=== PATIENT | female | born 1995 | race African-American/Black ===

== ENCOUNTER 2024-07-21 13:55 | Emergency (ER) | payer BC, SELFPAY ==
--- NOTE | ~2024-07-21 | XR_ITS ---
EXAMINATION: XR CHEST CLINICAL INFORMATION: Chest pain with deep breathing. COMPARISON: None available. TECHNIQUE: 2 views of the chest were obtained. FINDINGS: Heart size is normal. The lungs are clear. No pleural effusion. No pneumothorax. No acute osseous abnormality. XR/XR chest 2V IMPRESSION: No acute cardiopulmonary disease. Electronically signed by: Edvin Lind DO 07/21/2024 03:02 PM EDT RP
--- NOTE | 2024-07-21 14:00 | ECG_ITS ---
Test Reason : chest pain Blood Pressure : / mmHG Vent. Rate : 080 BPM Atrial Rate : 080 BPM P-R Int : 158 ms QRS Dur : 064 ms QT Int : 352 ms P-R-T Axes : 015 016 012 degrees QTc Int : 405 ms Normal sinus rhythm with sinus arrhythmia Cannot rule out Anterior infarct , age undetermined Abnormal ECG No previous ECGs available Referred By: Generic ED Physician Electronically Signed By:ZHANG ESCOBAR
--- NOTE | 2024-07-21 14:18 | ED_ITS ---
HPI - Chest Pain General Chief Complaint: Chest Pain Stated Complaint: Chest pain after taking sumatriptan Time Seen by Provider: 07/21/24 18:42 Source: patient Mode of arrival: ambulatory Limitations: no limitations History of Present Illness ED Provider: NIKKI GOLD PA-C HPI narrative: 29 year old female with pmhx significant for migraines, on sumatriptan, presents to the ED for evaluation of constant chest pain since 1200 yesterday. Reports taking a sumatriptan at noon yesterday for a migraine. Shortly after began to have right sided chest pain radiating to her back, worse with deep breathing. Admits to tight sensation. Admits to episode of diaphoresis while shopping at [employer] today prompting her to come to the ED for evaluation. She reports that this has completely resolved. Reports to previously to took sumatriptan years ago. She restarted it last month and has taken it 3 times, tolerating it well with improvement in migraines. She did not take any avjy-nop-ibxshwe pain medications for her chest pain prior to arrival in ED. No recent travel or long car rides. Reports remote history of OCP use when she was a teenager. Denies fever, chills, headache, dizziness, shortness of breath, wheezing, dyspnea, calf pain/swelling. Related Data Allergies Allergy/AdvReac Type Severity Reaction Status Date / Time Iodinated Contrast Media Allergy Anaphylaxis Verified 07/21/24 14:22 [Contrast Dye] Review of Systems 2 Review of Systems: Constitutional: No fever, chills, fatigue, night sweats, weight changes ENT/Mouth: No ear pain, hearing loss, nasal congestion, sinus pain, rhinorrhea, sore throat Eyes: No eye pain, swelling, redness, vision changes, discharge Cardio: No palpitations, KELLOGG, orthopnea, peripheral edema, +chest pain Pulm: No SOB, cough, sputum, wheezing, dyspnea, hemoptysis GI: No nausea, vomiting, hematemesis, abdominal pain, diarrhea, constipation, hematochezia, melena : No irregular bleeding, dysuria, frequency, urgency, hesitancy, hematuria, flank pain, urinary flow changes, urinary incontinence or retention MSK: No back pain, neck pain, joint pain, myalgias Skin: No lesions, rashes Neuro: No weakness, numbness, paresthesias, LOC, dizziness, headache Psych: No anxiety/panic, depression, SI/HI, AH/VH All other systems reviewed and are negative. [facility] Past Medical History Attestation statement: The following information was validated with the patient. Source: old records reviewed and nursing notes reviewed Social History Social History Advance Directives: No Advance Directives Information Provided: Yes Physical Exam 2 Vital Signs: Vital Signs: Last Vital Signs Temp 96.8 F 07/21/24 18:47 Pulse 84 07/21/24 18:47 Resp 20 07/21/24 18:47 BP 141/88 H 07/21/24 18:47 Pulse Ox 98 07/21/24 18:47 O2 Del Method Room Air 07/21/24 18:47 BMI result Body Mass Index 50.5 hypertensive to 141/88, vitals otherwise wnl. General: Well appearing, in no acute distress. Skin: Warm, dry, intact. No rashes or lesions. Head: Normocephalic, atraumatic. EENT: Hearing is intact b/l. PERRLA. Moist mucous membranes.? Neck: Supple without LAD. FROM. Trachea midline.? Cardiac: Chest wall symmetric. RRR. No MRG. No JVD. Lungs: Normal respiratory effort without accessory muscle use. CTA bilaterally. No rales, rhonchi, or wheezes.? Abdomen: Soft, non-tender, non-distended. No rebound tenderness or guarding. Back: No midline spinous or paraspinal tenderness. No step off deformity. Ext: Upper and lower extremities atraumatic, without tenderness, deformity, swelling or erythema. Full ROM throughout. Neuro: AOx3. Normal speech. Strength 5/5 intact throughout. Ambulating with steady gait. Psych: Appropriate mood and affect. Responds appropriately to questions. Course Course Course Narrative: This is a Rapid Medical Examination (RME) performed by Anahi Gold PA-C in triage. Full HPI, ROS, assessment and treatment plan per primary provider in the Main ED. 29 yo female hx of migraines here for eval of right sided chest pain radiating to back after taking sumatriptan around 1200 yesterday. chest pain is constant and worsening. described as a deep, tight sensation, worse with deep breathing. reports episode of diaphoresis while shopping at [employer] today. had previously taken sumatriptan years ago, took it again 3 times over the last month for migraines and tolerated it well with improvement in migraines. no recent travel or long car rides. remote hx of OCP use. + well appearing. lungs clear however patient reports pain with deep breathing. no reproducible chest wall tenderness. Plan: labs, ekg, cxr Reevaluation(s) Reevaluation #1: 1847 -- CBC with slight leukocytosis to 11,200 without left shift. no concern for infectious process. no anemia. h&h stable. chemistry without acute electrolyte abnormality requiring intervention. no demetri. normal liver function. troponin undetectable x2. beta quant hcg undetectable. not . cxr without infiltrate or consolidation. EKG showing normal sinus rhythm with sinus arrhythmia, no acute ischemic changes or ST elevations. > discussed all work up results with patient. concern for costochondritis vs pleuritis. advised to trial NSAIDs. Patient has remained stable throughout ED visit today. Discussed worrisome signs and symptoms and when to return to the ED. All questions answered at this time. Patient is agreeable with disposition and stable for discharge. Medical Decision Making Medical Decision Making [facility] Narrative: This patient presents with chest pain, with symptoms suggestive of noncardiac chest pain.?Vital signs are stable. She is not hypoxic. Not tachycardic. Well appearing. History without high risk features (not substernal, no exertional component, not relieved with rest).? Minimal CAD risk factors (including age). Exam without evidence of volume overload. EKG without signs of active ischemia. HEART score: 0.? Given the timing of pain to ED presentation, plan to send delta troponin to evaluate for NSTEMI. Presentation not consistent with acute PE (PERC negative), pneumothorax, thoracic aortic dissection, cardiac effusion or tamponade. Plan: labs, troponin, EKG, CXR, reassessment Differential Diagnosis Differential Diagnoses: The differential diagnosis associated with the presentation includes as above. Admission/Observation Not indicated. Lab Data [facility] Lab Attestation statement: I reviewed the patient's lab results. as above. 07/21/24 14:48 07/21/24 14:48 Labs: Lab Results 07/21/24 07/21/24 Range/Units 14:48 18:02 WBC 11.2 H (4.8-10.8) X10*3/uL RBC 4.99 (4.20-5.50) X10*6/uL Hgb 13.2 (12.0-16.0) g/dl Hct 39.0 (37.0-47.0) % MCV 78.2 L (80.0-98.0) fL MCH 26.5 L (27.0-33.0) pg MCHC 33.8 (31.0-35.0) g/dl RDW 15.5 (11.0-16.0) % Plt Count 367 (160-400) X10*3/uL MPV 10.5 (9.4-12.3) fL Immature Gran % (Auto) 0.4 (0.0-0.4) % Neut % (Auto) 57.8 (45-73) % Lymph % (Auto) 33.8 (20-40) % [place] % (Auto) 6.0 (2-11) % Eos % (Auto) 1.2 (0-4) % Baso % (Auto) 0.8 (0-2) % Lymph # (Auto) 3.8 (1.2-4.9) X10*3/uL [place] # (Auto) 0.7 (0.1-1.2) X10*3/uL Eos # (Auto) 0.1 (0.0-0.4) X10*3/uL Baso # (Auto) 0.1 (0.0-0.2) X10*3/uL Abs Immat Gran (auto) 0.04 H (0.00-0.03) X10*3/uL Absolute Neuts (auto) 6.5 (2.0-8.3) x10*3/uL Absolute Nucleated RBC 0.000 (0.0-0.012) X10*3/uL Nucleated RBC % (auto) 0.0 (0.0-0.2) /100WBC PT 13.2 (11.1-13.3) SEC INR 1.1 (0.9-1.1) Sodium 140 (135-145) mmol/L Potassium 4.4 (3.3-5.1) mmol/L Chloride 107 (96-108) mmol/L Carbon Dioxide 24 (22-29) mmol/L Anion Gap 13 (12-20) BUN 10 (9-16) mg/dL Creatinine 0.77 (0.5-1.4) mg/dL Estim Creat Clear Calc 137.5 Estimated GFR > 60 Random Glucose 84 (60-115) mg/dL Calcium 9.6 (8.4-10.2) mg/dL Magnesium 1.9 (1.6-2.6) mg/dL Total Bilirubin 0.3 (0.0-1.0) mg/dL AST 15 (5-31) U/L ALT 15 (0-31) U/L Alkaline Phosphatase 68 (39-117) U/L Troponin I High Sens < 2.7 < 2.7 (<3.5-17.0) ng/L Total Protein 7.5 (6.5-8.0) g/dL Albumin 4.4 (3.5-5.0) g/dL Beta HCG, Quant < 2 mIU/mL Independent Interpretation I performed an independent interpretation of an: EKG and Plain X-Ray Interpretation: EKG showing normal sinus rhythm with sinus arrhythmia, no acute ischemic changes or ST elevations. Chest x-ray without focal consolidation or infiltrate, agree with radiologist's interpretation. Radiology Impression Discussion of test interpretation with radiology: I have reviewed the radiologist's reading. Radiologist Impression: EXAMINATION: XR CHEST CLINICAL INFORMATION: Chest pain with deep breathing. COMPARISON: None available. TECHNIQUE: 2 views of the chest were obtained. FINDINGS: Heart size is normal. The lungs are clear. No pleural effusion. No pneumothorax. No acute osseous abnormality. XR/XR chest 2V IMPRESSION: No acute cardiopulmonary disease. Electronically signed by: Edvin Lind DO 07/21/2024 03:02 PM EDT External Record Review External record reviewed: Inpatient record Prescription Management I considered prescription management with: Pain Medication (NSAIDS) Chronic Conditions Patient?s care impacted by: Other (migraines) Social Determinants Patient?s care significantly limited by Social Determinants of Health including: Other Social Determinant of Health Critical Care Time Critical Care Time Critical Care Time: No Discharge Plan Discharge Clinical Impression: Atypical chest pain Patient Disposition: Home, Self-Care Instructions: Noncardiac Chest Pain (ED), Chest Wall Pain (ED) Additional Instructions: You were evaluated in the Emergency Department today for chest pain. Your evaluation has shown no signs of medical conditions requiring emergent intervention at this time, however I recommend that you follow up with your primary care provider or your machine feed operator as soon as possible for further testing as an outpatient. If you do not have one, a referral has been provided. Please call them to make an appointment, they will not call you. I recommend discontinuing use of sumatriptan until you follow up with your prescriber. Return to the Emergency Department if you experience worsening or uncontrolled chest pain, shortness of breath, light headedness, feeling faint, nausea, vomiting, or any other concerning symptoms. Interventions: ED Discharge Assessment Last Done: 07/21/24 18:47 Discharge Date/Time: 07/21/24 18:48 Print Language: Lithuanian
[2024-07-21 14:19] VITALS: BP 142/85; PULSE 85; RESP 16; TEMP 37; O2SAT 100; BMI 50.5
[2024-07-21 14:59] LABS: MANUAL DIFF FLAG NO
[2024-07-21 15:06] LABS: Basophils Absolute Auto 0.1 X10*3/uL (0.0-0.2); Basophils Percent Auto 0.8 % (0-2); Eosinophils Absolute Auto 0.1 X10*3/uL (0.0-0.4); Eosinophils Percent Auto 1.2 % (0-4); Hemoglobin 13.2 g/dl (12.0-16.0); Imm Gran Abs Auto 0.04 X10*3/uL (0.00-0.03); Imm Gran Pct Auto 0.4 % (0.0-0.4); Lymphocytes Absolute Auto 3.8 X10*3/uL (1.2-4.9); Lymphocytes Percent Auto 33.8 % (20-40); Mean Corpuscular HGB Conc 33.8 g/dl (31.0-35.0); Mean Corpuscular Hemoglobin 26.5 pg (27.0-33.0); Mean Corpuscular Volume 78.2 fL (80.0-98.0); Mean Platelet Volume 10.5 fL (9.4-12.3); Monocytes Absolute Auto 0.7 X10*3/uL (0.1-1.2); Neutrophils Absolute Auto 6.5 x10*3/uL (2.0-8.3); Neutrophils Percent Auto 57.8 % (45-73); Platelet Count 367 X10*3/uL (160-400); Red Blood Count 4.99 X10*6/uL (4.20-5.50); Red Cell Distribution Width 15.5 % (11.0-16.0); White Blood Count 11.2 X10*3/uL (4.8-10.8)
[2024-07-21 15:11] LABS: INTERNATIONAL NORM RATIO 1.1 (0.9-1.1); Prothrombin Time 13.2 SEC (11.1-13.3)
[2024-07-21 15:23] LABS: Alanine Aminotransferase 15 U/L (0-31); Albumin Level 4.4 g/dL (3.5-5.0); Alkaline Phosphatase 68 U/L (39-117); Anion Gap 13 (12-20); Aspartate Amino Transferase 15 U/L (5-31); Bilirubin Total 0.3 mg/dL (0.0-1.0); Blood Urea Nitrogen 10 mg/dL (9-16); Calcium 9.6 mg/dL (8.4-10.2); Carbon Dioxide 24 mmol/L (22-29); Chloride 107 mmol/L (96-108); Creatinine Clr Calc Pharmacy 137.5; Estimated Glomerular Filt Rate > 60; Glucose Random 84 mg/dL (60-115); Magnesium 1.9 mg/dL (1.6-2.6); Potassium 4.4 mmol/L (3.3-5.1); Sodium 140 mmol/L (135-145); Total Protein 7.5 g/dL (6.5-8.0)
[2024-07-21 15:31] LABS: HCG Quantitative < 2 mIU/mL; Troponin-I High Sensitivity < 2.7 ng/L (<3.5-17.0)
[2024-07-21 18:34] LABS: Troponin-I High Sensitivity < 2.7 ng/L (<3.5-17.0)
[2024-07-21 18:39] VITALS: BP 141/88; PULSE 84; RESP 20; TEMP 36; O2SAT 98
[2024-07-21 18:47] VITALS: BP 141/88; PULSE 84; RESP 20; TEMP 36; O2SAT 98
== END 2024-07-21 18:48 | disposition home or self-care (01) ==
PROVIDERS: Physician Assistant Medical; Emergency Provider Emergency Medicine Emergency Medical Services
DX: R07.89 Other chest pain (principal)
CPT/HCPCS: 36415; 71046; 80053; 83735; 84484; 84702; 85025; 85610; 93005; 99283

== ENCOUNTER 2024-12-17 00:48 | Inpatient (IN) | payer BC, SELFPAY ==
[2024-12-17] VITALS (10 sets, daily range): BP systolic 108–143; BP diastolic 58–84; PULSE 99–136; RESP 16–27; TEMP 36.4–37.7; O2SAT 97–100; BMI 48.8
--- NOTE | ~2024-12-17 | CT_ITS ---
CLINICAL HISTORY: non focal abd pain with leukocytosis CT abdomen and pelvis without contrast Comparison: None Findings: 1.1 cm semi solid left lower lobe pulmonary nodule on image number 13 of series 5. The visualized portion of the right lung base appears clear. The gallbladder and solid organs are within normal limits. No renal stones. No hydronephrosis or hydroureter. No bowel obstruction. There is colonic diverticulosis with severe pericolonic fat stranding of the mid sigmoid colon, consistent with acute diverticulitis. There is associated bowel wall thickening in this region. A small focus of gas is identified along the superior aspect of the mid sigmoid colon , adjacent to a diverticulum on coronal image number 39 of series 7. Pelvic contents unremarkable. No bladder wall thickening. Minimal free fluid identified within the pelvis. Normal appendix. The bones are intact. IMPRESSION: 1. Colonic diverticulosis with acute diverticulitis at the mid sigmoid colon. There is extensive pericolonic fat stranding at this site. No pericolonic abscess demonstrated. A small focus of gas is identified along the superior aspect of the mid sigmoid colon adjacent to a diverticulum which may represent gas within the diverticulum versus minimal extraluminal gas related to a contained perforation. This document has been electronically signed by: Eulalio Cordero MD on 12/17/2024 04:24:01
--- NOTE | ~2024-12-17 | XR_ITS ---
CLINICAL HISTORY: Fecal impaction 1 view abdomen Comparison: None Findings: No pneumoperitoneum or pneumatosis. No dilated loops of bowel or evidence for bowel obstruction. No definite gas over the expected location of the rectum. No significant colonic or rectal stool burden visualized. No acute fractures. IMPRESSION: 1. Nonobstructed bowel-gas pattern. No significant colonic or rectal stool burden visualized. This document has been electronically signed by: Eulalio Cordero MD on 12/17/2024 01:54:20
--- OUTSIDE RECORDS SUMMARY | 2024-12-17 01:11 | XMS_ITS | Encounter Summary ---
Author Organization [facility] Address [address] [place] [address] Phone Care Team Providers Care It Disaster Recovery Manager Name Role Phone Unavailable Primary Care Provider Unavailabl e Encounter Details Date Type Department Care Team (Late st Contact Info) Description 07/10/2014 6:00 PM EDT Hospital Encounter Child Health [facility] [address] [place] [address] Humaira Garcia MD [address] [place] [id number] Social History Tobacco Use Types Packs/Day Years Used Date Smoking Tobacco: Never Assessed Comments Unknown Sex and Gender Information Value Date Recorded Sex Assigned at Not on file Legal Sex Female 6:38 PM EDT Gender Identity Not on file Sexual Orientation Not on file documented as of this encounter Plan of Treatment Not on file documented as of this encounter Visit Diagnoses Not on filedocumented in this encounter
--- OUTSIDE RECORDS SUMMARY | 2024-12-17 01:11 | XMS_ITS | Clinical Summary ---
Author Organization [facility] Address [address] [place] [address] Phone Care Team Providers Care [place] Worker Name Role Phone Unavailable Primary Care Provider Unavailabl e Allergies Active Allergy Reactions Criticality Noted Date Comments Other Anaphylaxis High 2018 IV contrast media Medications ciprofloxacin 500 MG tablet 05/14/2018 Activ e predniSONE 10 MG tablet 05/12/2018 Active medroxyPROGESTER one (DEPO-PROVERA) 400 MG/ML suspension Inject 400 mg/mL into the muscle. 05/26/2016 Active Active Problems Problem Noted Date Diagnosed Date Henoch-Schonlein purpura 05/25/2018 RB (rectal bleeding) 10/08/2016 Foot neuralgia, right 07/28/2016 Neck sprain and strain 06/18/2015 Excessive or frequent menstruation 09/09/2011 Constipation 07/01/2010 Immunizations Immunization Administration Dates Next Due DTaP 06/30/2000, 8,1996, 996,1996 HPV, Quadrivalent 05/24/2008,01/03/2008,10/26/20 07 Hep A 06/07/2017 Hep B 05/26/2016, 5,02/13/1997, 996,1996 HiB 08/15/1997, 7,1996, 996 IPV 06/30/2000, 8,1996, 996 Influenza 09/09/2011 MMR 07/20/2001,08/15/1997 Meningococcal Conj (Menactra) MCV4P 05/26/2016 PPD Test 07/20/2001 Td 05/09/2015 Tdap 10/26/2007 Family History Relation Name Status Comments Other : Parents gisselle al status: Single * Family history of anemia (Mother) * Family history of cancer (Father) * Family history of high blood pressure (Paternal Grandmother) * Family history of high blood pressure (Paternal Grandfather) * Family history of diabetes mellitus (Paternal Grandfather) * Family history of high cholesterol (Paternal Grandfather) Social History Tobacco Use Types Packs/Day Years Used Date Smoking Tobacco: Never Assessed Comments Unknown Sex and Gender Information Value Date Recorded Sex Assigned at Not on file Legal Sex Female 6:38 PM EDT Gender Identity Not on file Sexual Orientation Not on file Last Filed Vital Signs Vital Sign Reading Time Taken Comments Blood Pressure 120/78 2018 11:05 AM EDT Pulse 92 2018 11:05 AM EDT Temperature 36.8 ??C (98.2 ??F) 2018 11:05 AM E DT Respiratory Rate - - Oxygen Saturation 100% 2018 11:05 AM EDT Inhaled Oxygen Concentration - - Weight 97.5 kg (215 lb) 2018 11:05 AM EDT Height 159.4 cm (5' 2.75 ) 06/07/2017 12:31 PM E DT Body Mass Index 38.39 06/07/2017 12:31 PM EDT Plan of Treatment Health Maintenance Due Date Last Done Comments Consider Men B Vaccine (1 of 2 - Bexsero 2-dose series) 2012 Varicella Vaccines (1 of 2 - 13+ 2-dose series) 02/08/2017 Influenza Vaccines (#1) 2024 09/01/20 21, 07/28/2019, 08/03/2018, Additional history exists COVID-19 Vaccine ( season) 2024 11/19/2021, 12/13/2020, 11/14/2020 DTaP,Tdap,and Td Vaccines (9 - Td or Tdap) 11/17/2026 11/17/2016, 05/09/2015, 10/26/2007, Additional history exists HIB Vaccines Completed 08/15/1997, 11/09, 1996, Additional history exists IPV Vaccines Completed 06/30/2000, 11/08, 1996, Additional history exists Meningococcal Vaccine Aged Out 05/26/2016 No keith chantel eligible based on patient's age to complete this topic HPV Vaccines Completed 01/11/2017, 05/09, 05/24/2008, Additional history exists Hepatitis B Vaccines Completed 01/11/2017, 05/26/2016, 05/20/2015, Additional history exists MMR Vaccines Completed 01/11/2017, 07/09, 08/15/1997, Additional history exists Hepatitis A Vaccines Aged Out 06/07/2017 No long er eligible based on patient's age to complete this topic Men B Vaccine Aged Out No longer elig ible based on patient's age to complete this topic Pneumococcal Vaccine Aged Out No long er eligible based on patient's age to complete this topic Insurance O
--- OUTSIDE RECORDS SUMMARY | 2024-12-17 01:11 | XMS_ITS | Encounter Summary ---
Author Organization [facility] Address [address] [place] [address] Care Team Providers Care Communications Specialist Name Role Phone Myriam Carballo MD Primary Care Provider [phone] Encounter Details Date Type Department Care Team (Late st Contact Info) Description 06/03/2022 External Result Entry [facility] [address] [place] [address] Slate Handler: Lizeth Schmidt, RN [place], [place] Social History Tobacco Use Types Packs/Day Years Used Date Smoking Tobacco: Never Smokeless Tobacco: Never Comments:: Alcohol Use Standard Drinks/Week Comments Yes 0 (1 standard drink = 0.6 oz pur e alcohol) social Comments No Sex and Gender Information Value Date Recorded Sex Assigned at Female 04/27/2023 2:21 PM EDT Legal Sex Female 12:58 PM EDT Gender Identity Female 04/27/2023 2:21 PM EDT Sexual Orientation Lesbian or Martin 04/27/2023 2: 21 PM EDT documented as of this encounter Plan of Treatment Upcoming Encounters Date Type Department Care Team (Late st Contact Info) Description 02/09/2025 11:00 AM EDT Telehealth [facility] 5th Floor [address] [place] [address] documented as of this encounter Procedures * Due to [place] state law, this organization might not be sharing negative HIV tests. Procedure Name Priority Date/Time Associated Diagnosis Comments HEP B CORE TOTAL ANTIBODY, OUTSIDE LAB Routine 05/28/2022 HEPATITIS B SURFACE ANTIGEN W/CONFIRMATION, OUTSIDE LAB Routine 05/28/2022 MUMPS ANTIBODY IGG, OUTSIDE LAB Routine 04/15/2022 MEASLES ANTIBODY (IGG), OUTSIDE LAB Routine 04/15/2022 HEP B SURFACE ANTIBODY, OUTSIDE LAB Routine 04/15/2022 VARICELLA ZOSTER ANTIBODY, IGG, OUTSIDE LAB Routine 04/15/2022 QUANTIFERON, OUTSIDE LAB Routine 04/15/2022 RUBELLA ANTIBODY, IGG, OUTSIDE LAB Routine 04/15/2022 AMB EXTERNAL XR CHEST, OUTSIDE RESULT Routine 06/05/2015 12:26 PM EDT AMB EXTERNAL PPD, OUTSIDE RESULT Routine 05/08/2015 12:25 PM EDT documented in this encounter Results * Due to [place] state law, this organization might not be sharing negative HIV tests. * Hep B Core Total Antibody, Outside Lab (05/28/2022) Hep B Core Total AB neg Blood 05/28/2022 us Unknown Provider LAB BLOOD ORDERABLES Final R esult * Hepatitis B Surface Antigen w/Confirmation, Outside Lab (05/28/2022) Hepatitis B Surface Antigen neg Blood Structure of peripheral vein / Unknown 05/28/2022 us Unknown Provider LAB BLOOD ORDERABLES Final R esult * Varicella Zoster Antibody, IGG, Outside Lab (04/15/2022) VZV AB, IgG pos Blood Structure of peripheral vein / Unknown 04/15/2022 us Unknown Provider LAB BLOOD ORDERABLES Final R esult * Hep B Surface Antibody, Outside Lab (04/15/2022) Hep B Surface Antibody neg Blood 04/15/2022 us Unknown Provider LAB BLOOD ORDERABLES Final R esult * Rubella Antibody, IgG, Outside Lab (04/15/2022) Rubella Antibody, IgG pos Blood Structure of peripheral vein / Unknown 04/15/2022 us Unknown Provider LAB BLOOD ORDERABLES Final R esult * Mumps Antibody IgG, Outside Lab (04/15/2022) Mumps Antibody IgG pos Blood 04/15/2022 us Unknown Provider LAB BLOOD ORDERABLES Final R esult * Measles Antibody (IGG), Outside Lab (04/15/2022) Measles Antibody (IgG) pos Blood 04/15/2022 us Unknown Provider LAB BLOOD ORDERABLES Final R esult * Quantiferon, Outside Lab (04/15/2022) Quantiferon neg Blood Structure of peripheral vein / Unknown 04/15/2022 us Unknown Provider LAB BLOOD ORDERABLES Final R esult * XR Chest, Outside Result (06/05/2015 12:26 PM EDT) Anatomical Region Laterality Modality Other us Unknown Provider AMB EXTERNAL RESULT PROCEDUR ES Final Result * External PPD, Outside Result (05/08/2015 12:25 PM EDT) PPD, Outside Result Positive us Unknown Provider MD MENDOZA EXTERNAL RESULT PROCEDUR ES Final Result documented in this encounter Visit Diagnoses Not on filedocumented in this encounter Care Teams Communications Specialist Relationship Specialty Start Date End Date Myriam Carballo MD [address] [place] [phone] PCP - General Family Medicine 01/27/23 documented as of this encounter
--- OUTSIDE RECORDS SUMMARY | 2024-12-17 01:11 | XMS_ITS | Encounter Summary ---
Author Organization [facility] Address [address] [place] [address] Phone Care Team Providers Care Airplane First Officer Name Role Phone Unavailable Primary Care Provider Unavailabl e Encounter Details Date Type Department Care Team (Late st Contact Info) Description 06/14/2015 2:00 PM EDT Hospital Encounter Child Health [facility] [address] [place] [address] Humaira Garcia MD [address] [place] [phone] Social History Tobacco Use Types Packs/Day Years [...]
--- OUTSIDE RECORDS SUMMARY | 2024-12-17 01:11 | XMS_ITS | Clinical Summary ---
Author Organization [facility] Address [address] [place] [address] Care Team Providers Care Help Desk Support Name Role Phone Micheal Nunez Primary Care Provider [phone] Immunizations Name Administration Dates Next Due COVID-19, mRNA (Moderna Pre Fall 2022) Monovalent, 100 mcg/0.5 ml or 50 mcg/0.25 ml dose 11/19/2021,12/13/2020,11/14/2020 HPV - 05/30/2014 HPV4 (Gardasil 4) 01/11/2017, 8,01/03/2008,10/26 Hep A - 06/07/2017 Hep B (adult) 05/08/2022 Hep B (pedi) 1996 Hep B - 01/11/2017, 6,05/20/2015,02/13,1996,1996 IPV 06/30/2000, 8,1996,07/26 Influenza (SEASONAL) - 09/09/2011 Influenza,injectable,MDCK, P rsrv Fr,Quad 09/11/2022,08/02/2017 Influenza,injectable,quad,Prsrv Fr 09/01,07/28/2019,08/03/2018,08/05 MMR 01/11/2017, 1,08/15/1997,05/29 Meningococcal ACWY (Menactra) 05/26/2016 PCV-20 04/15/2022 Td - 05/09/2015 Social History Tobacco Use Types Packs/Day Years Used Date Smoking Tobacco: Never Assessed Intimate Partner Violence Answer Date R ecorded Fear of Current or Ex-Partner Not on file Emotionally Abused Not on file 07/01/2023 Physically Abused Not on file 07/01/2023 Sexually Abused Not on file 07/01/2023 Feel Safe at Home Not on file 07/01/2023 Comments Unknown Sex and Gender Information Value Date Recorded Sex Assigned at Not on file Legal Sex Female 10:22 AM EDT Gender Identity Not on file Sexual Orientation Not on file Plan of Treatment Health Maintenance Due Date Last Done Comments Hepatitis C Screening 1996 Pap Smear 2012 DTaP/Tdap/Td (1 - Tdap) 05/10/2015 05/09/2015 COVID-19 Vaccine ( season) 2024 11/19/2021, 12/13/2020, 11/14/2020 Influenza (#1) 2024 09/11/2022, 08/09, 07/28/2019, Additional history exists Zoster (Shingrix) (1 of 2) 2046 Meningococcal ACWY Aged Out 05/26/2016 No longer eligible based on patient's age to complete this topic HPV Vaccine Completed 01/11/2017, 05/09, 05/24/2008, Additional history exists Hep A Aged Out 06/07/2017 No longer eligi ble based on patient's age to complete this topic Pneumococcal Aged Out 04/15/2022 No longer eligi ble based on patient's age to complete this topic Hep B Completed 05/08/2022, 04/2017, 05/26/2016, Additional history exists Hib Aged Out No longer eligi ble based on patient's age to complete this topic Insurance * Guarantor: GEMA ANGEL Account Type Relation to Patient Date of Phone Billing Address Personal/Family [address] [place] [address] [employer] FEE FOR SERVICE HMO * Guarantor: [facility] Account Type Relation to Patient Date of Phone Billing Address [employer] [phone] (Home) ACCOUNTS PAYABLE [address] [place] [id number] Care Teams Help Desk Support Relationship Specialty Start Date End Date Micheal Nunez [address] [address] PCP - General Internal Medicine 11/13/19
--- OUTSIDE RECORDS SUMMARY | 2024-12-17 01:11 | XMS_ITS | Encounter Summary ---
Author Organization [facility] Address [address] [place] [address] Care Team Providers Care Manual Writer Name Role Phone Myriam Carballo MD Primary Care Provider [phone] Encounter Details Date Type Department Care Team (Late st Contact Info) Description 07/19/2024 [employer] Message [facility] Financial Clearance Department [address] [place] [address] Mychart, Generic Provider [facility] [place] [phone] Medication Social History Tobacco Use Types Packs/Day Years Used Date Smoking Tobacco: Never Smokeless Tobacco: Never Comments:: Alcohol Use Standard Drinks/Week Comments Yes 0 (1 standard drink = 0.6 oz pur e alcohol) social [facility] Utilities Answer Date Recorded In the past 12 months has e electric, gas, oil, or water company threatened to shut off services in your home? No 04/17/2024 Hunger Vital Sign Answer Date Recorded Within the past 12 months, y ou worried that your food would run out before you got the money to buy more. Never true 04/17/20 24 Within the past 12 months, t he food you bought just didn't last and you didn't have money to get more. Never true 04/17/2024 Transportation Answer Date Recorded In the past 12 months, has l ack of reliable transportation kept you from medical appointments, meetings, work or from getting things needed for daily living? No 04/17/2024 Housing Answer Date Recorded Housing Risk Low 1 04/17/2024 Housing Risk Medium 1 04/17/2024 Housing Risk High Not on file 04/17/2024 What is your living situation today? LSSTEADY 04/17/2024 Comments No Sex and Gender Information Value [...] Info) Description 02/09/2025 11:00 AM EDT Telehealth [facility] 5th Floor [address] [place] [address] documented as of this encounter Visit Diagnoses Not on filedocumented in this encounter Care Teams Manual Writer Relationship Specialty Start Date End Date Myriam Carballo MD [address] [place] [address] PCP - General Family Medicine 01/27/23 documented as of this encounter
--- OUTSIDE RECORDS SUMMARY | 2024-12-17 01:11 | XMS_ITS | Encounter Summary ---
Author Organization [facility] Address [address] [place] [address] Phone Care Team Providers Care Director Of Corporate Sales Name Role Phone Humaira Garcia MD Primary Care Provider Encounter Details Date Type Department Care Team (Late st Contact Info) Description 03/27/2018 Conversion Encounter [facility] [address] [place] [address] Social History Tobacco Use Types Packs/Day Years [...] on filedocumented in this encounter Care Teams Director Of Corporate Sales Relationship Specialty Start Date End Date Humaira Garcia MD [address] [place] [address] PCP - General 03/16/18 06/11/19 documented as of this encounter
--- OUTSIDE RECORDS SUMMARY | 2024-12-17 01:11 | XMS_ITS | Referral Summary ---
Author Organization [facility] Address [address] [place] [address] Care Team Providers Care Muskrat Trapper Name Role Phone Myriam Carballo MD Primary Care Provider [phone] Encounters Date Type Department Care Team Description 12/11/2024 [employer] Message [address] [phone] Clothing Presser: Myriam Cox MD Three quick questions 10/11/[address] [phone] Clothing Presser: Lizeth Schmidt RN 10/11/2024 [employer] Message [address] [phone] Clothing Presser: Myriam Cox MD Norovirus from Last 3 Months Allergies Active Allergy Reactions Criticality Noted Date Comments Iodinated Contrast Media Anaphylaxis High 11/24/2017 No Known Drug Allergies Unknown Sulfites Dyspnea High 12/15/2019 Medications * This document contains information received from the source organization and may not represent a complete record from that organization. EPINEPHrine (EPIPEN) 0.3 mg/0.3 mL injection syringe Inject 1 dose into the muscle once as needed; seek medical attention as soon as possible after injection. 2 each 02/08/2023 4:23 PM EDT 3 Active colestipoL (COLESTID) 1 gram tablet Take 2 tablets at bedtime 60 tablet 3 04/02/2023 4:40 PM EDT 3 Active naltrexone-bupro pion 8-90 mg tablet extended release Take 1 tablet by mouth 2 times a day. Start 1 tablet daily for the first 7 days and then increase to 1 tablet twice daily if tolerating 60 tablet 4 Active SUMAtriptan (IMITREX) 25 mg tablet Take 1 tablet (25 mg total) by mouth daily as needed for migraine. May repeat dose once in 2 hours if no relief. Do not exceed 2 doses in 24 hours. 30 tablet 3 4 Active dicyclomine (BENTYL) 20 mg tablet Take 1-2 tablets (20-40 mg total) by mouth 3 times a day as needed for abdominal pain and cramping.. 90 tablet 3 4 Active omeprazole (PriLOSEC) 20 mg capsule Take 1 capsule (20 mg total) by mouth once a day. 30 capsule 1 4 Active albuterol (Ventolin HFA) 90 mcg inhaler Inhale 2 puffs (180 mcg total) by mouth every 6 hours as needed for wheezing 18 g 2 4 Active levothyroxine (SYNTHROID, LEVOTHROID) 25 mcg tablet Take 1 tablet (25 mcg total) by mouth daily. 30 tablet 3 4 Active budesonide-formo teroL (Breyna) 80-4.5 mcg inhalerIndicatio ns:Mild intermittent asthma with exacerbation Inhale 2 puffs by mouth 2 times a day. Rinse mouth with water after use. Do not swallow. 10.3 g 3 4 Active famotidine (PEPCID) 20 mg tablet Take 1 tablet (20 mg total) by mouth 2 (two) times a day. 20 tablet 04/19/2020 4:20 PM EDT 0 020 Discontin ued(Exter nal source cancellat ion) QUEtiapine (SEROquel) 25 mg tablet Take 1 tablet (25 mg total) by mouth nightly. 30 tablet 11/26/2020 1:12 PM EST 01/ 021 Discontin ued(Other (enter Order note)) Active Problems Problem Noted Date Diagnosed Date Inflammatory bowel disease 01/25/2023 Burning sensation 11/10/2016 RB (rectal bleeding) 10/08/2016 Constipation 10/08/2016 Foot neuralgia, right 07/28/2016 Latent tuberculosis 02/07/2013 Overview (07/30/2017): TST 20MM 01/23/2013 Immunizations Name Administration Dates Next Due Diphtheria, Tetanus Toxoids and Acellular Pertussis Vaccine 06/30/2000,11/21/1997,1996,09/27,1996 HPV, Unspecified Formulation 05/30/2014 Haemophilus Influenzae Type B Vaccine, Conjugate Unspecified Formulation 08/15/1997,08/15/1997,1996,11/29,1996,1996,1996 ,1996 Hep A, Unspecified 06/07/2017 Hep B, Unspecified 08/25/2023,,01/11/2017,05/26,05/20/2015,02/13/1997,1996 ,1996 Hepatitis B Vaccine, Pediatr ic or Pediatric/Adolescent Dosage 1996 Hepatitis B Vaccine, Unspeci fied Formulation 05/08/2022 Hepatitis B adult (ENGERIX-B ADULT) vaccine 1 mL IM 05/08/2022,05/26/2016,02/13/1997 Hepatitis B adult (ENGERIX-B/RECOMBIVAX HB ADULT) vaccine 1 mL IM 01/11/2017,05/20/2015,1996 Human Papilloma Virus Vaccin e, Quadrivalent 01/11/2017,05/24/2008,01/03/2008,10/26 Influenza, Injectable, Madin Monika Canine Kidney, Preservative Free, Quadrivalent 09/11/2022,08/02/2017 Influenza, Injectable, Quadr ivalent, Contains Preservative 09/01/2021 Influenza, Injectable, Quadr ivalent, Preservative Free 08/30/2024,09/11/2022,09/01/2021,07/28,08/03/2018,08/05/2016 Influenza, Unspecified 08/26/2023,2021,09/01/2021,09/09 Measles, Mumps, and Rubella Vaccine /04/2017,07/20/2001,08/15/1997,05/29 Meningococcal Polysaccharide (Groups A, C, Y and W-135) Diphtheria Toxoid Conjugate Vaccine (MCV4P) 05/26/2016 Pneumococcal conjugate PCV20,polysaccharide [id number] conjugate, adjuvant, PF (Prevnar 20) 04/15/2022 Poliovirus Vaccine, Inactivated 06/30/20 00,11/21/1997,1996,07/26 Tetanus Toxoid, Reduced Diph theria Toxoid, and Acellular Pertussis Vaccine, Adsorbed 11/17/2016,10/26/2007 Tetanus and Diphtheria Toxoi ds, Adsorbed, Preservative Free (2 Lf of Tetanus Toxoid and 2 Lf of Diphtheria Toxoid) 05/09/2015 Tuberculin Skin Test; Juan Ramon ed Protein Derivative Solution, Intradermal 07/20/2001 Social History Tobacco Use Types Packs/Day Years Used Date Smoking Tobacco: Never Smokeless Tobacco: Never Comments:: Alcohol Use Standard Drinks/Week Comments Yes 0 (1 standard drink = 0.6 oz pur e alcohol) social [facility] Utilities Answer Date Recorded In the past 12 months has th e electric, gas, oil, or water [employer] threatened to shut off services in your [...] or Martin 04/27/2023 2: 21 PM EDT Last Filed Vital Signs Vital Sign Reading Time Taken Comments Blood Pressure 137/80 06/05/2024 12:53 PM EDT Pulse 74 06/05/2024 12:53 PM EDT Temperature 36.7 ??C (98.1 ??F) 06/02/2023 10:06 AM E DT Respiratory Rate 18 02/17/2022 3:16 PM EDT Oxygen Saturation 99% 06/05/2024 12:53 PM EDT Inhaled Oxygen Concentration - - Weight 124.7 kg (275 lb) 06/05/2024 12:53 PM EDT Height 157.5 cm (5' 2 ) 06/05/2024 12:53 PM EDT Body Mass Index 50.3 06/05/2024 12:53 PM EDT Plan of Treatment Upcoming Encounters Date Type Department Care Team (Late st Contact Info) Description 02/09/2025 11:00 AM EDT Telehealth [facility] [address]th [address] [place], [place] [phone] Procedures * Due to [place] state law, this organization might not be sharing negative HIV tests. Procedure Name Priority Date/Time Associated Diagnosis Comments HEPATITIS C ANTIBODY W/REFLEX TO HCV RNA, QUANTITATIVE PCR Routine 06/02/2023 11:13 AM EDT Routine screening for STI (sexually transmitted infection) from Last 3 Months or Most Recently Relevant to Health Maintenance Results * Due to [place] state law, this organization might not be sharing negative HIV tests. * Hepatitis C Antibody w/Reflex to HCV RNA, Quantitative PCR (06/02/2023 11:13 AM EDT) Hepatitis C Antibody NON-REACT RCISTINE NON-REACT CRISTINE 06/02/2023 8:55 PM EDT [employer] Comment: HCV antibody was non-reactive. There is no laboratory evidence of HCV infection. In most cases, no further action is required. However, if recent HCV exposure is suspected, a test for HCV RNA (test code 58224) is suggested. For additional information please refer to http://education.[employer]/faq/CRR76u4 (This link is being provided for informational/ educational purposes only.) Blood Structure of peripheral vein / Unknown Venipuncture / Unknown 06/02/2023 11:13 AM EDT 06/02/2023 11:25 AM EDT Narrative [facility] - 06/02/2023 8:55 PM EDT [facility] Received Date:[id number] us Myriam Carballo MD LAB BLOOD ORDERABLES Final R esult [facility] [address], [place] [address], [place] [phone] [employer] [facility] [address], [place] [address], [place] [phone] from Last 3 Months or Most Recently Relevant to Health Maintenance Advance Directives Documents on File Type Date Recorded 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
--- OUTSIDE RECORDS SUMMARY | 2024-12-17 01:11 | XMS_ITS | Encounter Summary ---
Author Organization [facility] Address [address] [place] [address] Care Team Providers Care Hand Chain Maker Name Role Phone Myriam Carballo MD Primary Care Provider [phone] Encounter Details Date Type Department Care Team (Late st Contact Info) Description 12/11/2024 myChart Message [facility] [address] [place] [phone] Implementation Director: Myriam Cox MD [address] [place] [address] Three quick questions Social History Tobacco Use Types Packs/Day Years Used Date Smoking Tobacco: Never Smokeless Tobacco: Never Comments:: Alcohol Use Standard Drinks/Week Comments Yes 0 (1 standard drink = 0.6 oz pur e alcohol) social [facility] Utilities Answer Date Recorded In the past 12 months has th e [employer], gas, oil, or water [employer] threatened to shut off services in your [...] Info) Description 02/09/2025 11:00 AM EDT Telehealth [facility] 5th Floor [address] [place] [address] documented as of this encounter Visit Diagnoses Not on filedocumented in this encounter Care Teams Hand Chain Maker Relationship Specialty Start Date End Date Myriam Carballo MD [address] [place] [phone] PCP - General Family Medicine 01/27/23 documented as of this encounter
--- OUTSIDE RECORDS SUMMARY | 2024-12-17 01:11 | XMS_ITS | Encounter Summary ---
Author Organization [facility] Address [address] [place] [address] Phone Care Team Providers Care Impregnating Helper Name Role Phone Humaira Garcia MD Primary Care Provider [phone] Encounter Details Date Type Department Care Team (Late st Contact Info) Description 09/28/2016 [facility] [address] [place] [address] Humaira Garcia MD [address] [place] [phone] Social History Tobacco Use Types Packs/Day Years Used Date Smoking Tobacco: Never Assessed Comments Unknown Sex and Gender Information Value Date Recorded Sex Assigned at Not on file Legal Sex Female 6:38 PM EDT Gender Identity Not on file Sexual Orientation Not on file documented as of this encounter H&P Notes * Humaira Garcia MD - 09/28/2016 12:00 AM EST Hospital History & Physical: low back pain and diarrhea Imported By: Collette Adams 10/02/2016 8:29:23 AM External Attachment: Type: Image Comment: External Document documented in this encounter Plan of Treatment Not on file documented as of this encounter Visit Diagnoses Not on filedocumented in this encounter Care Teams Impregnating Helper Relationship Specialty Start Date End Date Humaira Garcia MD [address] [place] [phone] PCP - General 03/16/18 06/11/19 documented as of this encounter
--- OUTSIDE RECORDS SUMMARY | 2024-12-17 01:11 | XMS_ITS | Clinical Summary ---
Author Organization [facility] Address [address] [place] [address] Care Team Providers Care Shop Manager Name Role Phone Myriam Carballo MD Primary Care Provider Allergies Active Allergy Reactions Criticality Noted Date [...] nightly. 30 tablet 11/26/2020 1:12 PM EST 1 021 Discontin ued(Other (enter Order note)) Active Problems Problem Noted Date Diagnosed Date Inflammatory bowel disease 01/25/2023 Burning sensation 11/10/2016 RB (rectal bleeding) 10/08/2016 Constipation 10/08/2016 Foot neuralgia, right 07/28/2016 Latent tuberculosis 02/07/2013 Overview (07/30/2017): TST 20MM 01/23/2013 Encounters Date Type Department Care Team Description 12/11/2024 myChart Message [address] [address] Parachute Inspector: Myriam Cox MD Three quick questions 10/11/2024 Telephone [facility] [address] [address] Parachute Inspector: Lizeth Schmidt RN 10/11/2024 [employer] Message [address] [address] Parachute Inspector: Myriam Cox MD Norovirus from Last 3 Months Immunizations Name Administration Dates Next Due Diphtheria, [...] Unspecified 08/26/2023,2021,09/01/2021,09/09 Measles, Mumps, and Rubella Vaccine 04/2017,07/20/2001,08/15/1997,05/29 Meningococcal Polysaccharide (Groups A, C, Y and W-135) Diphtheria Toxoid Conjugate Vaccine (MCV4P) 05/26/2016 Pneumococcal conjugate PCV20,polysaccharide [id number] conjugate, adjuvant, PF (Prevnar 20) 04/15/2022 Poliovirus Vaccine, Inactivated 06/30/20 00,11/21/1997,1996,07/26 Tetanus Toxoid, Reduced Diph theria Toxoid, and Acellular Pertussis Vaccine, Adsorbed 11/17/2016,10/26/2007 Tetanus and Diphtheria Toxoi ds, Adsorbed, Preservative Free (2 Lf of Tetanus Toxoid and 2 Lf of Diphtheria Toxoid) 05/09/2015 Tuberculin Skin Test; Juan Ramon ed Protein Derivative Solution, Intradermal 07/20/2001 Family History Medical History Relation Name Comments Autism Brother 1 Depression Brother 2 Depression Brother 3 Colon cancer Father Breast cancer Maternal Grandmother Skin cancer Maternal Grandmother Donaldo's thyroiditis Mother Parkinsonism Mother Crohn's disease Mother's Brother COPD Paternal Grandfather Diabetes Paternal Grandfather Myocardial Infarction Paternal Grandfather Myocardial Infarction Paternal Grandmother Relation Name Status Comments Brother 1 Alive Brother 2 Alive Brother 3 Alive Father Maternal Grandmother Mother Mother's Brother Alive Paternal Grandfather Paternal Grandmother Social History Tobacco Use Types Packs/Day Years Used Date Smoking Tobacco: Never Smokeless Tobacco: Never Comments:: Alcohol Use Standard Drinks/Week Comments Yes 0 (1 standard drink = 0.6 oz pur e alcohol) social [facility] Utilities Answer Date Recorded In the past 12 months has e [employer], gas, oil, or water [employer] threatened to shut off services in your [...] Info) Description 02/09/2025 11:00 AM EDT Telehealth [facility] 5th Floor [address] [place] [phone] Health Maintenance Due Date Last Done Comments Varicella Vaccines (1 of 2 - 13+ 2-dose series) 02/08/2017 COVID-19 Vaccine (2023-2 5 season) 2024 11/19/2021, 12/13/2020, 11/14/2020 Alcohol/Substance Use Screening 11/08/2024 Depression Evaluation 11/08/2024 Social Drivers of Health Mickie ual Screening 11/08/2024 04/17/2024 Pap Smear 11/19/2025 11/19/2022, 02/10/2017 DTaP,Tdap,and Td Vaccines (9 - Td or Tdap) 11/17/2026 11/17/2016, 05/09/2015, 10/26/2007, Additional history exists RSV Vaccine (60+ years old a nd patients) (1 - 1-dose 75+ series) [address] [facility] Student Health-MMR Vaccines Completed 01/11/2017, 07/20/2001, 08/15/1997, Additional history exists Pneumococcal Vaccine: Pediat karey (0-5 Years) and At-Risk Patients (6-64 Years) Completed 04/15/2022 HIV Screening Completed 06/02/2023, 04/15/2022 Hepatitis C Screening Completed 06/02/2023 Hepatitis B Vaccines Completed 08/25/2023, 05/08/2022, 05/08/2022, Additional history exists Influenza Vaccine Completed 08/30/2024, , 09/11/2022, Additional history exists Procedures * Due to [place] [employer] law, this organization might not be sharing negative HIV tests. Procedure Name Priority Date/Time Associated Diagnosis Comments HEPATITIS C ANTIBODY W/REFLEX TO HCV RNA, QUANTITATIVE PCR Routine 06/02/2023 11:13 AM EDT Routine screening for STI (sexually transmitted infection) from Last 3 Months or Most Recently Relevant to Health Maintenance Results * Due to [place] [employer] law, this organization might not be sharing negative HIV tests. * Hepatitis C Antibody w/Reflex to HCV RNA, Quantitative PCR (06/02/2023 11:13 AM EDT) Hepatitis C Antibody NON-REACT CRISTINE NON-REACT CRISTINE 06/02/2023 8:55 PM EDT [employer] [facility] Comment: HCV antibody was non-reactive. There is no laboratory evidence of HCV infection. In most cases, no further action is required. However, if recent HCV exposure is suspected, a test for HCV RNA (test code 54257) is suggested. For additional information please refer to http://education.[employer]/faq/KOT31n0 (This link is being provided for informational/ educational purposes only.) Blood Structure of peripheral vein / Unknown Venipuncture / Unknown 06/02/2023 11:13 AM EDT 06/02/2023 11:25 AM EDT Narrative [facility] - 06/02/2023 8:55 PM EDT [facility] Received Date:[id number] Myriam Carballo MD LAB BLOOD ORDERABLES Final R esult [facility] [address] [facility] 3rd Floor, [place] [address], [employer] [facility] [address] [facility] 3rd Floor, [place] [address], [place] [phone] from Last 3 Months or Most Recently Relevant to Health Maintenance Advance Directives Documents on File Type Date Recorded 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
--- NOTE | 2024-12-17 01:16 | ED.GENADULT ---
HPI - General Adult General Chief complaint: General Medical Stated complaint: Abd pain Time Seen by Provider: 12/17/24 01:16 Source: patient Mode of arrival: ambulatory Limitations: no limitations History of Present Illness ED Provider: HPI narrative: Patient with history of IBS complaining of constipation diffuse abdominal discomfort , rectal pressure after patient's change to diet eating low-calorie diet about 4 weeks ago bill pain got worse in last 2 days patient tried milk of magnesium without much response feels diffusely bloated no nausea no vomiting no fever no chills no blood in his stool patient after taking medication noticed small amount of blood today Related Data Previous Rx's ?Medication ?Instructions ?Recorded polyethylene glycol 3350 17 17 g PO DAILY #510 grams 12/17/24 gram/dose oral powder (Miralax) sennosides 8.6 mg capsule (senna) 8.6 mg PO BEDTIME PRN constipation 12/17/24 #20 caps Allergies Allergy/AdvReac Type Severity Reaction Status Date / Time Iodinated Contrast Media Allergy Anaphylaxis Verified 12/17/24 00:53 [Contrast Dye] Review of Systems Review of Systems: Yes all other systems are reviewed and are negative [facility] Social History Social History Smoked in Last 30 Days: No Use of substances other than those prescribed or required for medical reasons: No Advance Directives: No Advance Directives Information Provided: Yes Do you have a plan to hurt others: No Plan Patient : No Physical Exam ED Vital Signs: Vital Signs - 24 hr 12/17/24 00:52 12/17/24 02:35 12/17/24 05:05 Temperature 98.6 F 98.2 F 98.8 F Pulse Rate 118 H 107 H 101 H Respiratory Rate 18 17 16 Blood Pressure 143/75 H 108/80 117/84 Pulse Oximetry 98 99 100 Oxygen Delivery Method Room Air Room Air Room Air BMI result Body Mass Index 48.8 Appearance: Alert. Oriented X3. No acute distress. Obese Eyes: No pallor or icterus ENT: Pharynx normal. Oral Mucosa moist Neck: Normal inspection. Neck supple. CVS: Normal heart rate and rhythm. Pulses normal. Respiratory: No respiratory distress. Equal air entry bilateral, no wheezing/rales/rhonchi Abdomen: Soft and diffuse tenderness more so in the left side Bowel sounds are present, no mass palpable, no CVA tenderness Skin: Skin warm and dry. Normal skin color. Normal skin turgor. Extremities: No lower extremity edema. No calf tenderness Neuro: Oriented X 3. No motor deficit. Medications Administered Discontinued Medications Generic Name Dose Route Start Last Admin Trade Name Freq PRN Reason Stop Dose Admin Piperacillin Sod/Tazobactam 50 mls @ 100 mls/hr 12/17/24 05:21 12/17/24 06:15 Sod 3.375 gm/ Sodium Chloride IV 12/17/24 05:50 Infused ONCE ONE Infusion Sodium Chloride 1,000 mls @ 999 mls/hr 12/17/24 05:55 12/17/24 06:03 Ns IV 12/17/24 06:55 999 mls/hr .Q1H1M ONE Administration Morphine Sulfate 4 mg 12/17/24 05:55 12/17/24 06:03 Morphine Sulfate 4 Mg/Ml Cartridge IVPUSH 12/17/24 05:56 4 mg ONCE ONE Administration Protocol Ondansetron HCl 4 mg 12/17/24 05:55 12/17/24 06:03 Ondansetron Hcl 4 Mg/2 Ml Vial IVPUSH 12/17/24 05:56 4 mg ONCE ONE Administration Medical Decision Making Medical Decision Making [facility] Narrative: Patient with constipation with diffuse sigmoid colon diverticulitis with diffuse inflammation will admit patient for IV fluids and antibiotics Differential Diagnosis Differential Diagnoses: The differential diagnosis associated with the presentation includes Colitis slight diverticulitis/constipation Admission/Observation Consideration of admission/observation: Escalation of care including admission/observation considered Consult Healthcare Provider Management of the patient was discussed with: Hospitalist Lab Data [facility] Lab Attestation statement: I reviewed the patient's lab results. 12/17/24 01:30 12/17/24 01:30 Labs: Lab Results 12/17/24 12/17/24 12/17/24 Range/Units 01:30 03:18 03:42 WBC 20.9 H (4.8-10.8) X10*3/uL RBC 5.05 (4.20-5.50) X10*6/uL Hgb 13.1 (12.0-16.0) g/dl Hct 38.4 (37.0-47.0) % MCV 76.0 L (80.0-98.0) fL MCH 25.9 L (27.0-33.0) pg MCHC 34.1 (31.0-35.0) g/dl RDW 15.5 (11.0-16.0) % Plt Count 368 (160-400) X10*3/uL MPV 11.1 (9.4-12.3) fL Immature Gran % (Auto) 0.4 (0.0-0.4) % Neut % (Auto) 78.2 H (45-73) % Lymph % (Auto) 13.1 L (20-40) % [place] % (Auto) 8.0 (2-11) % Eos % (Auto) 0.0 (0-4) % Baso % (Auto) 0.3 (0-2) % Lymph # (Auto) 2.8 (1.2-4.9) X10*3/uL [place] # (Auto) 1.7 H (0.1-1.2) X10*3/uL Eos # (Auto) 0.0 (0.0-0.4) X10*3/uL Baso # (Auto) 0.1 (0.0-0.2) X10*3/uL Abs Immat Gran (auto) 0.08 H (0.00-0.03) X10*3/uL Absolute Neuts (auto) 16.4 H (2.0-8.3) x10*3/uL Absolute Nucleated RBC 0.000 (0.0-0.012) X10*3/uL Nucleated RBC % (auto) 0.0 (0.0-0.2) /100WBC Smear Tech's Comments VERIFIED Sodium 137 (135-145) mmol/L Potassium 4.3 (3.3-5.1) mmol/L Chloride 109 H (96-108) mmol/L Carbon Dioxide 17 L (22-29) mmol/L Anion Gap 15 (12-20) BUN 6 L (9-16) mg/dL Creatinine 0.78 (0.5-1.4) mg/dL Estim Creat Clear Calc 133.0 Estimated GFR > 60 Random Glucose 104 (60-115) mg/dL Lactic Acid 1.0 (0.5-2.0) mmol/L Calcium 9.2 (8.4-10.2) mg/dL Total Bilirubin 1.2 H (0.0-1.0) mg/dL AST 17 (5-31) U/L ALT 17 (0-31) U/L Alkaline Phosphatase 68 (39-117) U/L Total Protein 8.1 H (6.5-8.0) g/dL Albumin 4.3 (3.5-5.0) g/dL Beta HCG, Quant < 2 mIU/mL Urine Color [place] A Urine Appearance Clear Urine pH 5.5 (5.0-9.0) Ur Specific [place] 1.020 (1.005-1.025) Urine Protein Negative (Neg-Trace) mg/dL Urine Glucose (UA) Negative (Negative) mg/dL Urine Ketones 80 (Negative) mg/dL Urine Blood Negative (Negative) Urine Nitrite Negative (Negative) Ur Leukocyte Esterase Negative (Negative) Influenza Type A (PCR) NEGATIVE (Negative) Influenza Type B (PCR) NEGATIVE (Negative) RSV RNA Qual (PCR) NEGATIVE (Negative) SARS-CoV-2 RNA (RT-PCR) NEGATIVE (Negative) Independent Interpretation I performed an independent interpretation of an: Plain X-Ray Interpretation: [place] [id number] XRay Report Signed Patient: Gema Angel MR#: [id number] : 1995 Acct:[id number] Age/Sex: 29 / F ADM Date: 12/17/24 Loc: .ED Attending Dr: Ordering Physician: Mikey Plasencia MD Date of Service: 12/17/24 Procedure(s): XR KUB Accession Number(s): [id number] cc: Myriam Carballo; Mikey Plasencia MD~ CLINICAL HISTORY: Fecal impaction 1 view abdomen Comparison: None Findings: No pneumoperitoneum or pneumatosis. No dilated loops of bowel or evidence for bowel obstruction. No definite gas over the expected location of the rectum. No significant colonic or rectal stool burden visualized. No acute fractures. IMPRESSION: 1. Nonobstructed bowel-gas pattern. No significant colonic or rectal stool burden visualized. This document has been electronically signed by: Eulalio Cordero MD on 12/17/2024 01:54:20 Dictated By: Eulalio Cordero MD Signed By: <Electronically signed by Eulalio Cordero MD in [place]> 12/17/24 0154 DD/ 3 TD/TT: 12/17/24153 Cr[employer]ling [employer] Operator: Radiology Impression Discussion of test interpretation with radiology: I have reviewed the radiologist's reading. Discharge Plan Discharge Clinical Impression: Acute diverticulitis Patient Disposition: Admitted As Inpatient Print Language: Cymraes
[2024-12-17 01:37] LABS: Hematocrit 38.4 % (37.0-47.0); Hemoglobin 13.1 g/dl (12.0-16.0); Mean Corpuscular Hemoglobin 25.9 pg (27.0-33.0); Red Blood Count 5.05 X10*6/uL (4.20-5.50); White Blood Count 20.9 X10*3/uL (4.8-10.8)
[2024-12-17 01:38] LABS: Basophils Absolute Auto 0.1 X10*3/uL (0.0-0.2); Basophils Percent Auto 0.3 % (0-2); Imm Gran Abs Auto 0.08 X10*3/uL (0.00-0.03); Imm Gran Pct Auto 0.4 % (0.0-0.4); Lymphocytes Absolute Auto 2.8 X10*3/uL (1.2-4.9); Lymphocytes Percent Auto 13.1 % (20-40); MANUAL DIFF FLAG SCAN; Mean Corpuscular HGB Conc 34.1 g/dl (31.0-35.0); Mean Platelet Volume 11.1 fL (9.4-12.3); Monocytes Absolute Auto 1.7 X10*3/uL (0.1-1.2); Neutrophils Absolute Auto 16.4 x10*3/uL (2.0-8.3); Neutrophils Percent Auto 78.2 % (45-73); Platelet Count 368 X10*3/uL (160-400); Red Cell Distribution Width 15.5 % (11.0-16.0); SCAN SMEAR FLAG 1
[2024-12-17 01:53] LABS: Alanine Aminotransferase 17 U/L (0-31); Albumin Level 4.3 g/dL (3.5-5.0); Anion Gap 15 (12-20); Aspartate Amino Transferase 17 U/L (5-31); Bilirubin Total 1.2 mg/dL (0.0-1.0); Blood Urea Nitrogen 6 mg/dL (9-16); Calcium 9.2 mg/dL (8.4-10.2); Carbon Dioxide 17 mmol/L (22-29); Chloride 109 mmol/L (96-108); Estimated Glomerular Filt Rate > 60; Glucose Random 104 mg/dL (60-115); Potassium 4.3 mmol/L (3.3-5.1); Sodium 137 mmol/L (135-145); Total Protein 8.1 g/dL (6.5-8.0)
[2024-12-17 02:15] LABS: Alkaline Phosphatase 68 U/L (39-117)
[2024-12-17 02:16] LABS: Influenza A PCR NEGATIVE (Negative); Influenza B PCR NEGATIVE (Negative); Resp Syncy Virus RNA Qual PCR NEGATIVE (Negative); SARS COV2 PCR INHOUSE NEGATIVE (Negative)
[2024-12-17 02:17] LABS: SLIDE REVIEW VERIFIED
[2024-12-17 03:06] LABS: HCG Quantitative < 2 mIU/mL
--- NOTE | 2024-12-17 03:33 | PC.NURSE ---
@ 8173 this rn discussed pt statuts pt meeting two SIRs criteria elevated wbc and HR [address] dupree per no sepsis alert at this time orders placed for ct, LA, and blood cultures urine sent down to lab
[2024-12-17 03:38] LABS: Appearance Urine Clear; Color Urine Orange; Glucose Urine UA Negative (Negative); Leukocyte Esterase Urine Negative (Negative); Nitrite Urine Negative (Negative); PH 5.5 (5.0-9.0); Urine Blood Negative (Negative); Urine Ketones 80 mg/dL (Negative); Urine Protein Negative (Neg-Trace)
--- NOTE | 2024-12-17 03:44 | MHC.EDTECH ---
This tech assisted with drawing blood cultures and lactic,sent to lab.
[2024-12-17] MEDS: Piperacillin Sodium/Tazobactam 3.375 GM in 0.9 % Sodium Chloride 50 ML IV ×3 (05:35→18:21)
[2024-12-17] MEDS: Morphine Sulfate 4 MG/ML CARTRIDGE IVPUSH (06:03)
[2024-12-17] MEDS: 0.9 % Sodium Chloride 1,000 ML 999 ML IV (06:03)
[2024-12-17] MEDS: ondansetron HCL 4 MG/2 ML VIAL IVPUSH ×2 (06:03→10:02)
--- NOTE | 2024-12-17 06:19 | PC.NURSE ---
20g iv placed in L AC pt tolerated well pt medicated according to mar
--- NOTE | 2024-12-17 09:24 | PHA.MEDREC ---
Addendum entered by Makayla Jeffers RPh 12/17/24 13:19: Med rec was reviewed by [facility]. Original Note: Pharmacy Consult ? Medication Reconciliation Pharmacy has completed the medication reconciliation. Spoke to pt to confirm meds. Pr pt, has not taken levothyroxine 25 mcg in a month, but should still be taking.
[2024-12-17] MEDS: Levothyroxine Sodium 25 MCG TABLET PO (10:02)
[2024-12-17] MEDS: HYDROmorphone HCl 0.5 MG/0.5 ML SYRINGE IVPUSH ×2 (10:02→15:54)
--- NOTE | 2024-12-17 13:10 | P.HPHOSP_ITS ---
History of Present Illness Date of Service: 12/17/24 Attending physician on admission: Lakisha Christine Chief Complaint: acute diverticulitis HPI:29 y/o F with pmhx IBS-D: patien who change to diet eating low-calorie diet (trying for weight loss) about 4 complaining of constipation diffuse abdominal discomfort , rectal pressure after weeks ago : She said she tried milk of magnesium without much response . Patient feels diffusely bloated , has abdominal pain predominantly on the left side, as per the ED physician she also noticed little bleeding with the stool today. no nausea no vomiting no fever no chills or vomiting Patient had WBC count of 20, tachycardia and tachypnea, lactic acid 1.0, blood cultures sent, CT abdomen shows sigmoid diverticulitis with fat stranding and small amount of air. Admission was requested for acute diverticulitis with sepsis: Patient received IV Zosyn, Zofran, morphine in the ED-says her pain seems similar still, has some nausea. Review of Systems 2 Review of Systems: As above. Yes all other systems are reviewed and are negative PMFSH Social History Patient Tobacco Use Status: Never used Tobacco Smoked in Last 30 Days: No Use of substances other than those prescribed or required for medical reasons: No Advance Directives: No Advance Directives Information Provided: Yes Do you have a plan to hurt others: No Plan Patient : No Meds Allergies Allergy/AdvReac Type Severity Reaction Status Date / Time Iodinated Contrast Media Allergy Anaphylaxis Verified 12/17/24 00:53 [Contrast Dye] Active Medications: Current Medications Acetaminophen (Acetaminophen 325 Mg Tablet) 650 mg PO Q6H PRN PRN Reason: Pain, Mild 1-3,fever,headache Calcium Carbonate (Calcium Carbonate 750 Mg Tab.Chew) 750 mg PO Q4H PRN PRN Reason: Heartburn Hydromorphone HCl (Hydromorphone Hcl 0.5 Mg/0.5 Ml Syringe) 0.5 mg IVPUSH Q6H PRN; Protocol PRN Reason: Pain, Severe (Pain Scale 7-10) Last Admin: 12/17/24 10:02 Dose: 0.5 mg Piperacillin Sod/Tazobactam (Sod 3.375 gm/ Sodium Chloride) 50 mls @ 100 mls/hr IV Q6H [facility] Last Admin: 12/17/24 12:32 Dose: 100 mls/hr Lactated Ringer's (Lr) 1,000 mls @ 100 mls/hr IVCONT .Q10H [facility] Levothyroxine Sodium (Levothyroxine Sodium 25 Mcg Tablet) 25 mcg PO DAILY@0600 [facility] Last Admin: 12/17/24 10:02 Dose: 25 mcg Magnesium Hydroxide (Milk Of Magnesia 30 Ml Oral.Susp) 30 ml PO DAILY PRN PRN Reason: Constipation Melatonin (Melatonin 3 Mg Tablet) 6 mg PO BEDTIME PRN PRN Reason: Insomnia Ondansetron HCl (Ondansetron Hcl 4 Mg/2 Ml Vial) 4 mg IVPUSH Q6H PRN PRN Reason: Nausea and Vomiting Last Admin: 12/17/24 10:02 Dose: 4 mg Sodium Chloride (0.9 % Sodium Chloride Flush 3 Ml Syringe) 3 ml IVFLUSH QSHIFT [facility] Home Medications ?Medication ?Instructions ?Recorded ?Confirmed ?Last Taken ?Type albuterol sulfate 90 mcg/actuation 2 puff inhalation Q6H PRN wheezing 12/17/24 12/17/24 Unknown History aerosol inhaler levothyroxine 25 mcg tablet 25 mcg PO DAILY@0600 12/17/24 12/17/24 1 Month Ago History ~11/16/24 Physical Exam 2 Vital Signs and Narrative: Vital Signs: Last Vital Signs Temp 98.2 F 12/17/24 12:00 Pulse 110 H 12/17/24 12:00 Resp 22 H 12/17/24 12:00 BP 124/74 12/17/24 12:00 Pulse Ox 99 12/17/24 12:00 O2 Del Method Room Air 12/17/24 12:00 BMI result Body Mass Index 48.8 Appearance: Alert.? Oriented X3. Eyes: Pupils equal, round and reactive to light.? Sclera nonicteric.? ENT: Pharynx normal.? Moist mucous membranes. cvs: rrr, [id number]. res: clear to auscultation ,no rhonchii or wheezing abd: no rebound or guarding ,LLq and upper quadrent pain , bs present. ext pulses present , no cyanosis . neuro: axo3 , nonfocal. Results Labs 12/17/24 01:30 12/17/24 01:30 Labs: Laboratory Results - last 24 hr 12/17/24 12/17/24 12/17/24 01:30 03:18 03:42 MCV 76.0 L MCH 25.9 L MCHC 34.1 RDW 15.5 Plt Count 368 MPV 11.1 Immature Gran % (Auto) 0.4 Neut % (Auto) 78.2 H Lymph % (Auto) 13.1 L [place] % (Auto) 8.0 Eos % (Auto) 0.0 Baso % (Auto) 0.3 Lymph # (Auto) 2.8 [place] # (Auto) 1.7 H Eos # (Auto) 0.0 Baso # (Auto) 0.1 Abs Immat Gran (auto) 0.08 H Absolute Neuts (auto) 16.4 H Absolute Nucleated RBC 0.000 Nucleated RBC % (auto) 0.0 Smear Tech's Comments VERIFIED Anion Gap 15 Estim Creat Clear Calc 133.0 Estimated GFR > 60 Random Glucose 104 Lactic Acid 1.0 Calcium 9.2 Total Bilirubin 1.2 H AST 17 ALT 17 Alkaline Phosphatase 68 Total Protein 8.1 H Albumin 4.3 Beta HCG, Quant < 2 Urine Color [place] A Urine Appearance Clear Urine pH 5.5 Ur Specific [place] 1.020 Urine Protein Negative Urine Glucose (UA) Negative Urine Ketones 80 Urine Blood Negative Urine Nitrite Negative Ur Leukocyte Esterase Negative Influenza Type A (PCR) NEGATIVE Influenza Type B (PCR) NEGATIVE RSV RNA Qual (PCR) NEGATIVE SARS-CoV-2 RNA (RT-PCR) NEGATIVE Assessment and Plan (1) Acute diverticulitis: Status: Acute Plan 29 y/o F with pmhx IBS-D with new diet change and subsequent constipation and then developed abdominal pain and found to have diverticulitis. Acute diverticulitis with sepsis Has tachycardia, leukocytosis, tachypnea Lactic acid normal Blood cultures sent ct abd:Colonic diverticulosis with acute diverticulitis at the mid sigmoid colon. There is extensive pericolonic fat stranding at this site, . No pericolonic abscess demonstrated. A small focus of gas is identified along the superior aspect of the mid sigmoid colon adjacent to a diverticulum which may represent gas within the diverticulum versus minimal extraluminal gas related to a contained perforation. Plan Bowel rest,IV fluid, IV Dilaudid, IV Zosyn Surgery evaluation IBS-D: no diarrhae continue to moniter hypothyriodism: continue levothyroxine asthma mild intermittent: stable continue home albuterol. Patient will benefit from 2 midnight stay consideringAcute diverticulitis withc ontained perforation. and sepsis: Need IV hydration, IV pain medication, IV antibiotics as well as surgical evaluation. Above management discussed with the patient in detail length he understand and in agreement with the above plan, time spent 70 minute. Quality Stroke Does the patient have a stroke diagnosis?: No VTE Prior VTE?: No VTE Risk Level:: Medical - moderate - high VTE Device Contraindication: N/A - Device Ordered VTE Drug Contraindication: N/A - Med Ordered
[2024-12-17] MEDS: Lactated Ringers 1,000 ML 100 ML IVCONT (14:44)
--- NOTE | 2024-12-17 15:47 | PM.CNGS ---
History of Present Illness Consult details Consult date: 12/17/24 Requesting physician: Lakisha Christine Narrative: Patient is a 29-year-old female with a past history of irritable bowel syndrome who has had 2 colonoscopies in the past an upper endoscopy was never told that she had diverticulosis. She came in here today complaining of abdominal pain and CT scan carried out showed sigmoid diverticulitis with inflammatory changes and thickening and some changes outside in the mesentery. She denies any significant fevers or chills. No family history of any inflammatory bowel disease or diverticulitis Review of Systems Review of Systems: Yes all other systems are reviewed and are negative [facility] Social History Social History Patient Tobacco Use Status: Never used Tobacco Smoked in Last 30 Days: No Use of substances other than those prescribed or required for medical reasons: No Advance Directives: No Advance Directives Information Provided: Yes Do you have a plan to hurt others: No Plan Patient : No Meds Allergies Allergy/AdvReac Type Severity Reaction Status Date / Time Iodinated Contrast Media Allergy Anaphylaxis Verified 12/17/24 00:53 [Contrast Dye] Active Medications: Current Medications Acetaminophen (Acetaminophen 325 Mg Tablet) 650 mg PO Q6H PRN PRN Reason: Pain, Mild 1-3,fever,headache Albuterol Sulfate (Albuterol Sulfate 90 Mcg 8 Gm Inhaler) 2 puff INHALE Q6H PRN PRN Reason: wheezing Calcium Carbonate (Calcium Carbonate 750 Mg Tab.Chew) 750 mg PO Q4H PRN PRN Reason: Heartburn Hydromorphone HCl (Hydromorphone Hcl 0.5 Mg/0.5 Ml Syringe) 0.5 mg IVPUSH Q6H PRN; Protocol PRN Reason: Pain, Severe (Pain Scale 7-10) Last Admin: 12/17/24 10:02 Dose: 0.5 mg Piperacillin Sod/Tazobactam (Sod 3.375 gm/ Sodium Chloride) 50 mls @ 100 mls/hr IV Q6H [facility] Last Infusion: 12/17/24 13:02 Dose: Infused Lactated Ringer's (Lr) 1,000 mls @ 100 mls/hr IVCONT .Q10H [facility] Last Admin: 12/17/24 14:44 Dose: 100 mls/hr Levothyroxine Sodium (Levothyroxine Sodium 25 Mcg Tablet) 25 mcg PO DAILY@0600 [facility] Last Admin: 12/17/24 10:02 Dose: 25 mcg Magnesium Hydroxide (Milk Of Magnesia 30 Ml Oral.Susp) 30 ml PO DAILY PRN PRN Reason: Constipation Melatonin (Melatonin 3 Mg Tablet) 6 mg PO BEDTIME PRN PRN Reason: Insomnia Ondansetron HCl (Ondansetron Hcl 4 Mg/2 Ml Vial) 4 mg IVPUSH Q6H PRN PRN Reason: Nausea and Vomiting Last Admin: 12/17/24 10:02 Dose: 4 mg Sodium Chloride (0.9 % Sodium Chloride Flush 3 Ml Syringe) 3 ml IVFLUSH QSHIFT [facility] Last Admin: 12/17/24 15:47 Dose: Not Given Home Medications ?Medication ?Instructions ?Recorded ?Confirmed ?Last Taken ?Type albuterol sulfate 90 mcg/actuation 2 puff inhalation Q6H PRN wheezing 12/17/24 12/17/24 Unknown History aerosol inhaler levothyroxine 25 mcg tablet 25 mcg PO DAILY@0600 12/17/24 12/17/24 1 Month Ago History ~11/16/24 Physical Exam Vital Signs: Vital Signs: Last Vital Signs Temp 98.2 F 12/17/24 12:00 Pulse 110 H 12/17/24 12:00 Resp 22 H 12/17/24 12:00 BP 124/74 12/17/24 12:00 Pulse Ox 99 12/17/24 12:00 O2 Del Method Room Air 12/17/24 12:00 BMI result Body Mass Index 48.8 Const: General: cooperative, healthy appearing and comfortable Nutritional Appearance: obese Resp: Effort & Inspection: normal respiratory effort Auscultation: clear to auscultation bilaterally Cardio: Rate: regular rate Rhythm: regular rhythm GI: Other: Abdomen is soft nondistended but she is tender diffusely but more specifically on the left side some guarding no peritoneal signs active bowel sounds Skin: General skin exam: no rashes or lesions noted Psych: Appearance: grossly normal Mental Status: mental status grossly normal Speech and movement: Normal speech and movement present Affect: normal affect Attitude: cooperative Thought process: Normal thought process present Results Labs 12/17/24 01:30 12/17/24 01:30 Labs: Abnormal lab results 12/17/24 12/17/24 Range/Units 01:30 03:18 WBC 20.9 H (4.8-10.8) X10*3/uL MCV 76.0 L (80.0-98.0) fL MCH 25.9 L (27.0-33.0) pg Neut % (Auto) 78.2 H (45-73) % Lymph % (Auto) 13.1 L (20-40) % [place] # (Auto) 1.7 H (0.1-1.2) X10*3/uL Abs Immat Gran (auto) 0.08 H (0.00-0.03) X10*3/uL Absolute Neuts (auto) 16.4 H (2.0-8.3) x10*3/uL Chloride 109 H (96-108) mmol/L Carbon Dioxide 17 L (22-29) mmol/L BUN 6 L (9-16) mg/dL Total Bilirubin 1.2 H (0.0-1.0) mg/dL Total Protein 8.1 H (6.5-8.0) g/dL Urine Color [place] A Short CBC 12/17/24 Range/Units 01:30 WBC 20.9 H (4.8-10.8) X10*3/uL Hgb 13.1 (12.0-16.0) g/dl Hct 38.4 (37.0-47.0) % Plt Count 368 (160-400) X10*3/uL BMP 12/17/24 01:30 Sodium 137 Potassium 4.3 Chloride 109 H Carbon Dioxide 17 L BUN 6 L Creatinine 0.78 Calcium 9.2 Liver Function 12/17/24 Range/Units 01:30 Total Bilirubin 1.2 H (0.0-1.0) mg/dL AST 17 (5-31) U/L ALT 17 (0-31) U/L Alkaline Phosphatase 68 (39-117) U/L Albumin 4.3 (3.5-5.0) g/dL Urine 12/17/24 Range/Units 03:18 Urine Color [place] A Urine Appearance Clear Urine pH 5.5 (5.0-9.0) Ur Specific [place] 1.020 (1.005-1.025) Urine Protein Negative (Neg-Trace) mg/dL Urine Glucose (UA) Negative (Negative) mg/dL All other labs normal. Imaging Abdomen CT scan report/results: report reviewed and image reviewed CT scan - pelvis: report reviewed and image reviewed Additional studies: Ordering Physician: Mikey Plasencia MD Date of Service: 12/17/24 Procedure(s): CT abdomen pelvis wo IV con Accession Number(s): [id number] cc: Myriam Carballo; Mikey Plasencia MD~ Report Number: [id number]: Total DLP = 960.00 mGy-cm CLINICAL HISTORY: non focal abd pain with leukocytosis CT abdomen and pelvis without contrast Comparison: None Findings: 1.1 cm semi solid left lower lobe pulmonary nodule on image number 13 of series 5. The visualized portion of the right lung base appears clear. The gallbladder and solid organs are within normal limits. No renal stones. No hydronephrosis or hydroureter. No bowel obstruction. There is colonic diverticulosis with severe pericolonic fat stranding of the mid sigmoid colon, consistent with acute diverticulitis. There is associated bowel wall thickening in this region. A small focus of gas is identified along the superior aspect of the mid sigmoid colon , adjacent to a diverticulum on coronal image number 39 of series 7. Pelvic contents unremarkable. No bladder wall thickening. Minimal free fluid identified within the pelvis. Normal appendix. The bones are intact. IMPRESSION: 1. Colonic diverticulosis with acute diverticulitis at the mid sigmoid colon. There is extensive pericolonic fat stranding at this site. No pericolonic abscess demonstrated. A small focus of gas is identified along the superior aspect of the mid sigmoid colon adjacent to a diverticulum which may represent gas within the diverticulum versus minimal extraluminal gas related to a contained perforation. 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 This is the 1st time that she has been told that she has had diverticulosis is never had any diverticulitis before. She has been diagnosed with IBS and says that she has had 2 colonoscopies in the past several years ago and was never diagnosed with diverticulosis. Currently is stable plan to keep NPO IV fluids little ice chips IV antibiotics re-evaluate labs and physical exam tomorrow. She understands that if things progress she may need to have emergency surgery which would require most likely colostomy. This would only be temporarily. Patient has 1st episode of diverticulitis and most likely should recover well with conservative care in the need emergency surgery. We will reassess and hopefully she progresses. Procedures Date of Service Date of Service: 12/17/24
[2024-12-17] MEDS: Acetaminophen 325 MG TABLET 650 MG PO (21:04)
[2024-12-18] MEDS: Lactated Ringers 1,000 ML 100 ML IVCONT ×3 (00:19→23:53)
[2024-12-18] MEDS: 0.9 % Sodium Chloride Flush 3 ML SYRINGE IVFLUSH ×2 (00:20→23:53)
[2024-12-18] MEDS: HYDROmorphone HCl 0.5 MG/0.5 ML SYRINGE IVPUSH ×2 (00:40→13:00)
[2024-12-18] MEDS: Piperacillin Sodium/Tazobactam 3.375 GM in 0.9 % Sodium Chloride 50 ML IV ×5 (00:41→23:50)
[2024-12-18 05:33] VITALS: BP 120/69; PULSE 105; RESP 23; TEMP 36.7; O2SAT 98
--- NOTE | 2024-12-18 05:36 | PC.NURSE ---
pt ambulated to the bathroom, gait even and steady. assist back to bed. requesting PRN pain medication
[2024-12-18] MEDS: Levothyroxine Sodium 25 MCG TABLET PO (05:46)
[2024-12-18] MEDS: Acetaminophen 325 MG TABLET 650 MG PO (05:47)
--- NOTE | 2024-12-18 07:09 | PM.PNGS ---
Subjective Subjective Date of Service: 12/18/24 Interval history: Patient states abdominal symptoms are much improved. Not localized to the left lower abdomen as opposed to entire lower abdomen yesterday. Passing some flatus. Hungry. Physical Exam Vital Signs: Vital Signs: Last Vital Signs Temp 98.0 F 12/18/24 05:33 Pulse 105 H 12/18/24 05:33 Resp 23 H 12/18/24 05:33 BP 120/69 12/18/24 05:33 Pulse Ox 98 12/18/24 05:33 O2 Del Method Room Air 12/18/24 05:33 BMI result Body Mass Index 48.8 GI: Other: Corpulent abdomen. Left lower quadrant suprapubic tenderness localized. No evidence of any guarding, rebound, or rigidity. Objective Data Active Medications Acetaminophen (Acetaminophen 325 Mg Tablet) 650 mg PO Q6H PRN PRN Reason: Pain, Mild 1-3,fever,headache Last Admin: 12/18/24 05:47 Dose: 650 mg Documented By: PAYAM Albuterol Sulfate (Albuterol Sulfate 90 Mcg 8 Gm Inhaler) 2 puff INHALE Q6H PRN PRN Reason: wheezing Calcium Carbonate (Calcium Carbonate 750 Mg Tab.Chew) 750 mg PO Q4H PRN PRN Reason: Heartburn Hydromorphone HCl (Hydromorphone Hcl 0.5 Mg/0.5 Ml Syringe) 0.5 mg IVPUSH Q6H PRN; Protocol PRN Reason: Pain, Severe (Pain Scale 7-10) Last Admin: 12/18/24 00:40 Dose: 0.5 mg Documented By: PAYAM Piperacillin Sod/Tazobactam (Sod 3.375 gm/ Sodium Chloride) 50 mls @ 100 mls/hr IV Q6H [facility] Last Infusion: 12/18/24 06:22 Dose: Infused Documented By: PAYAM Lactated Ringer's (Lr) 1,000 mls @ 100 mls/hr IVCONT .Q10H [facility] Last Admin: 12/18/24 00:19 Dose: 100 mls/hr Documented By: PAYAM Levothyroxine Sodium (Levothyroxine Sodium 25 Mcg Tablet) 25 mcg PO DAILY@0600 [facility] Last Admin: 12/18/24 05:46 Dose: 25 mcg Documented By: PAYAM Magnesium Hydroxide (Milk Of Magnesia 30 Ml Oral.Susp) 30 ml PO DAILY PRN PRN Reason: Constipation Melatonin (Melatonin 3 Mg Tablet) 6 mg PO BEDTIME PRN PRN Reason: Insomnia Ondansetron HCl (Ondansetron Hcl 4 Mg/2 Ml Vial) 4 mg IVPUSH Q6H PRN PRN Reason: Nausea and Vomiting Last Admin: 12/17/24 10:02 Dose: 4 mg Documented By: YUMIKO Sodium Chloride (0.9 % Sodium Chloride Flush 3 Ml Syringe) [facility] Last Admin: 12/18/24 00:20 Dose: 3 ml Documented By: PAYAM Labs 12/17/24 01:30 12/17/24 01:30 Microbiology Microbiology Results: Microbiology 12/17/24 03:44 Blood Culture - Preliminary Blood - Venous No growth after 24 hours. 12/17/24 03:42 Blood Culture - Preliminary Blood - Venous No growth after 24 hours. Procedures Date of Service Date of Service: 12/18/24 Progress Note: A&P Assessment and plan (1) Acute diverticulitis: Status: Acute Plan Continue current plan; IV antibiotics, p.o. liquids, out of bed, incentive spirometry. A.m. labs. To follow with you. Time Spent With Patient Time: Total time managing care of this patient today ____ minutes. Quality Stroke Does the patient have a stroke diagnosis?: No VTE Prior VTE?: No VTE Risk Level:: Medical - moderate - high VTE Device Contraindication: N/A - Device Ordered VTE Drug Contraindication: N/A - Med Ordered
--- NOTE | 2024-12-18 08:31 | HO.PM.IMPN ---
Subjective Subjective Date of Service: 12/18/24 Interval History: seen and examined less diffuse pain, more in the b/l lower quad feels hungry denies nausea/vomiting Physical Exam Vital Signs: Vital Signs: Last Vital Signs Temp 98.0 F 12/18/24 05:33 Pulse 105 H 12/18/24 05:33 Resp 23 H 12/18/24 05:33 BP 120/69 12/18/24 05:33 Pulse Ox 98 12/18/24 05:33 O2 Del Method Room Air 12/18/24 05:33 BMI result Body Mass Index 48.8 Const: Other: General - no acute distress, appears comfortable Cardiovascular - regular rate and rhythm, S1-S2 Lungs - normal respiratory effort, clear to auscultation bilaterally, no wheezing Abdomen -b/l lower quad ttp without rebound or guarding Extremities - no edema bilaterally Neuro - awake and alert, no focal deficits Objective Data Active Medications Acetaminophen (Acetaminophen 325 Mg Tablet) 650 mg PO Q6H PRN PRN Reason: Pain, Mild 1-3,fever,headache Last Admin: 12/18/24 05:47 Dose: 650 mg Documented By: PAYAM Albuterol Sulfate (Albuterol Sulfate 90 Mcg 8 Gm Inhaler) 2 puff INHALE Q6H PRN PRN Reason: wheezing Calcium Carbonate (Calcium Carbonate 750 Mg Tab.Chew) 750 mg PO Q4H PRN PRN Reason: Heartburn Hydromorphone HCl (Hydromorphone Hcl 0.5 Mg/0.5 Ml Syringe) 0.5 mg IVPUSH Q6H PRN; Protocol PRN Reason: Pain, Severe (Pain Scale 7-10) Last Admin: 12/18/24 00:40 Dose: 0.5 mg Documented By: PAYAM Piperacillin Sod/Tazobactam (Sod 3.375 gm/ Sodium Chloride) 50 mls @ 100 mls/hr IV Q6H [facility] Last Infusion: 12/18/24 06:22 Dose: Infused Documented By: PAYAM Lactated Ringer's (Lr) 1,000 mls @ 100 mls/hr IVCONT .Q10H [facility] Last Admin: 12/18/24 00:19 Dose: 100 mls/hr Documented By: PAYAM Levothyroxine Sodium (Levothyroxine Sodium 25 Mcg Tablet) 25 mcg PO DAILY@0600 [facility] Last Admin: 12/18/24 05:46 Dose: 25 mcg Documented By: PAYAM Magnesium Hydroxide (Milk Of Magnesia 30 Ml Oral.Susp) 30 ml PO DAILY PRN PRN Reason: Constipation Melatonin (Melatonin 3 Mg Tablet) 6 mg PO BEDTIME PRN PRN Reason: Insomnia Ondansetron HCl (Ondansetron Hcl 4 Mg/2 Ml Vial) 4 mg IVPUSH Q6H PRN PRN Reason: Nausea and Vomiting Last Admin: 12/17/24 10:02 Dose: 4 mg Documented By: YUMIKO Sodium Chloride (0.9 % Sodium Chloride Flush 3 Ml Syringe) 3 ml IVFLUSH QSHIFT [facility] Last Admin: 12/18/24 08:06 Dose: Not Given Documented By: JONATHAN Non-Admin Reason: IV Running Labs 12/17/24 01:30 12/17/24 01:30 Microbiology Microbiology Results: Microbiology 12/17/24 03:44 Blood Culture - Preliminary Blood - Venous No growth after 24 hours. 12/17/24 03:42 Blood Culture - Preliminary Blood - Venous No growth after 24 hours. Assessment and Plan (1) Acute diverticulitis: Status: Acute Plan 29 y/o F with pmhx IBS-D with new diet change and subsequent constipation and then developed abdominal pain and found to have diverticulitis. Acute diverticulitis with sepsis possible containe micro perf on imaging surgery following -- trial of clears continue with IV abx, ivf, iv analgesics f/u cultures and serial abd pexam IBS-D: no diarrhea continue to moniter hypothyriodism continue levothyroxine asthma - mild intermittent stable continue home albuterol. reason for continued hospitalization: slowly improving, diet being advanced judiciously given possible micro perf, serial abd exams Quality Stroke Does the patient have a stroke diagnosis?: No VTE Prior VTE?: No VTE Risk Level:: Medical - moderate - high VTE Device Contraindication: N/A - Device Ordered VTE Drug Contraindication: N/A - Med Ordered
[2024-12-18 09:51] LABS: Hematocrit 31.8 % (37.0-47.0); Hemoglobin 10.3 g/dl (12.0-16.0); Mean Corpuscular HGB Conc 32.4 g/dl (31.0-35.0); Mean Corpuscular Hemoglobin 25.7 pg (27.0-33.0); Mean Corpuscular Volume 79.3 fL (80.0-98.0); Platelet Count 293 X10*3/uL (160-400); Red Blood Count 4.01 X10*6/uL (4.20-5.50); Red Cell Distribution Width 15.6 % (11.0-16.0); White Blood Count 17.3 X10*3/uL (4.8-10.8)
[2024-12-18 10:05] LABS: Alanine Aminotransferase 8 U/L (0-31); Albumin Level 3.5 g/dL (3.5-5.0); Alkaline Phosphatase 70 U/L (39-117); Anion Gap 13 (12-20); Aspartate Amino Transferase 13 U/L (5-31); Bilirubin Total 1.1 mg/dL (0.0-1.0); Blood Urea Nitrogen 6 mg/dL (9-16); Calcium 8.3 mg/dL (8.4-10.2); Carbon Dioxide 19 mmol/L (22-29); Chloride 111 mmol/L (96-108); Creatinine Clr Calc Pharmacy 159.6; Estimated Glomerular Filt Rate > 60; Glucose Random 66 mg/dL (60-115); Sodium 139 mmol/L (135-145); Total Protein 6.7 g/dL (6.5-8.0)
[2024-12-18 11:31] VITALS: BP 96/54; PULSE 86; RESP 25; TEMP 36.4; O2SAT 98
[2024-12-18 12:12] VITALS: BP 115/73; PULSE 90; RESP 18; TEMP 36.6; O2SAT 99
--- NOTE | 2024-12-18 14:31 | MHC.CM.PN ---
[employer] SPOKE WITH PT AT BEDSIDE. PT LIVES WITH S/O AT HOME([facility] [phone]) PT DOES NOT RECEIVE SERVICES OR USE DME PT'S PCP IS KEEGAN JOHNSON PT WILL FILL OUT HCP NAMING S/O AND MOTHER PROXIES [facility] [phone], [place] [phone] PT'S INS IS BLUE CROSS DCP- HOME NO SERVICES VIA PRIVATE TRANSPORT VS SHUTTLE OR LYFT(DEPENDS ON TIME OF DISCHARGE)
[2024-12-18 15:49] VITALS: BP 117/61; PULSE 92; RESP 14; TEMP 36.5; O2SAT 100
[2024-12-18] MEDS: oxyCODONE HCl Immed Release 5 MG TABLET PO (19:37)
[2024-12-18] MEDS: ondansetron HCL 4 MG/2 ML VIAL IVPUSH (19:37)
[2024-12-18 19:56] VITALS: BP 132/73; PULSE 99; RESP 16; TEMP 36.8; O2SAT 99
[2024-12-19 03:32] VITALS: BP 117/57; PULSE 90; RESP 18; TEMP 36.7; O2SAT 98
[2024-12-19] MEDS: Piperacillin Sodium/Tazobactam 3.375 GM in 0.9 % Sodium Chloride 50 ML IV ×3 (05:53→20:23)
[2024-12-19] MEDS: Levothyroxine Sodium 25 MCG TABLET PO (05:53)
--- NOTE | 2024-12-19 07:51 | PM.PNGS ---
Subjective Subjective Date of Service: 12/19/24 Interval history: Patient's abdominal symptoms are improving. States that abdominal pain much better than when she 1st was seen in the ER. Patient was on clear liquids yesterday and tolerated them marginally. White count 17 yesterday (down from 20 on admission Physical Exam Vital Signs: Vital Signs: Last Vital Signs Temp 98.0 F 12/19/24 03:32 Pulse 90 12/19/24 03:32 Resp 18 12/19/24 03:32 BP 117/57 L 12/19/24 03:32 Pulse Ox 98 12/19/24 03:32 O2 Del Method Room Air 12/19/24 03:32 BMI result Body Mass Index 48.8 GI: Other: Corpulent abdomen. Suprapubic and left lower quadrant tenderness but no evidence of any guarding, rebound, or rigidity. Objective Data Active Medications Acetaminophen (Acetaminophen 325 Mg Tablet) 650 mg PO Q6H PRN PRN Reason: Pain, Mild 1-3,fever,headache Last Admin: 12/18/24 05:47 Dose: 650 mg Documented By: PAYAM Albuterol Sulfate (Albuterol Sulfate 90 Mcg 8 Gm Inhaler) 2 puff INHALE Q6H PRN PRN Reason: wheezing Calcium Carbonate (Calcium Carbonate 750 Mg Tab.Chew) 750 mg PO Q4H PRN PRN Reason: Heartburn Hydromorphone HCl (Hydromorphone Hcl 0.5 Mg/0.5 Ml Syringe) 0.5 mg IVPUSH Q6H PRN; Protocol PRN Reason: Pain, Severe (Pain Scale 7-10) Last Admin: 12/18/24 13:00 Dose: 0.5 mg Documented By: EDEL Piperacillin Sod/Tazobactam (Sod 3.375 gm/ Sodium Chloride) 50 mls @ 100 mls/hr IV Q6H [facility] Last Infusion: 12/19/24 06:31 Dose: Infused Documented By: ARACELI Lactated Ringer's (Lr) 1,000 mls @ 100 mls/hr IVCONT .Q10H [facility] Last Infusion: 12/19/24 06:31 Dose: 100 mls/hr Documented By: ARACELI Levothyroxine Sodium (Levothyroxine Sodium 25 Mcg Tablet) 25 mcg PO DAILY@0600 [facility] Last Admin: 12/19/24 05:53 Dose: 25 mcg Documented By: ARACELI Magnesium Hydroxide (Milk Of Magnesia 30 Ml Oral.Susp) 30 ml PO DAILY PRN PRN Reason: Constipation Melatonin (Melatonin 3 Mg Tablet) 6 mg PO BEDTIME PRN PRN Reason: Insomnia Ondansetron HCl (Ondansetron Hcl 4 Mg/2 Ml Vial) 4 mg IVPUSH Q6H PRN PRN Reason: Nausea and Vomiting Last Admin: 12/18/24 19:37 Dose: 4 mg Documented By: ARACELI Oxycodone HCl (Oxycodone Hcl Immed Release 5 Mg Tablet) 5 mg PO Q4H PRN PRN Reason: Pain, Moderate(Pain Scale 4-6) Last Admin: 12/18/24 19:37 Dose: 5 mg Documented By: ARACELI Sodium Chloride (0.9 % Sodium Chloride Flush 3 Ml Syringe) 3 ml IVFLUSH QSHIFT [facility] Last Admin: 12/18/24 23:53 Dose: 3 ml Documented By: ARACELI Labs 12/18/24 08:10 12/18/24 08:10 Labs: Laboratory Results - last 24 hr 12/18/24 08:10 MCV 79.3 L MCH 25.7 L MCHC 32.4 RDW 15.6 Plt Count 293 MPV 12.0 Absolute Nucleated RBC 0.000 Nucleated RBC % (auto) 0.0 Anion Gap 13 Estim Creat Clear Calc 159.6 Estimated GFR > 60 Random Glucose 66 Calcium 8.3 L D Total Bilirubin 1.1 H AST 13 ALT 8 Alkaline Phosphatase 70 Total Protein 6.7 Albumin 3.5 Microbiology Microbiology Results: Microbiology 12/17/24 03:44 Blood Culture - Preliminary Blood - Venous No growth after 48 hours. 12/17/24 03:42 Blood Culture - Preliminary Blood - Venous No growth after 48 hours. Procedures Date of Service Date of Service: 12/19/24 Progress Note: A&P Assessment and plan (1) Acute diverticulitis: Status: Acute Plan Continue current plan; IV antibiotics, liquids, out of bed abdominal serial labs and exams Time Spent With Patient Time: Total time managing care of this patient today ____ minutes. Quality Stroke Does the patient have a stroke diagnosis?: No VTE Prior VTE?: No VTE Risk Level:: Medical - moderate - high VTE Device Contraindication: N/A - Device Ordered VTE Drug Contraindication: N/A - Med Ordered
[2024-12-19 07:59] VITALS: BP 123/77; PULSE 84; RESP 16; TEMP 36.6; O2SAT 98
[2024-12-19] MEDS: HYDROmorphone HCl 0.5 MG/0.5 ML SYRINGE IVPUSH (08:50)
[2024-12-19] MEDS: ondansetron HCL 4 MG/2 ML VIAL IVPUSH ×2 (08:51→22:04)
--- NOTE | 2024-12-19 10:39 | HO.PM.IMPN ---
Subjective Subjective Date of Service: 12/19/24 Interval History: acute diverticulitis Review of Systems abd pain somewhat improving feel nauseated d/w her she agrees for trial of liquid diet Physical Exam Vital Signs: Vital Signs: Last Vital Signs Temp 97.8 F 12/19/24 07:59 Pulse 84 12/19/24 07:59 Resp 16 12/19/24 07:59 BP 123/77 12/19/24 07:59 Pulse Ox 98 12/19/24 07:59 O2 Del Method Room Air 12/19/24 07:59 BMI result Body Mass Index 48.8 Appearance: Alert.? Oriented X3. cvs: rrr, [id number]. res: clear to auscultation ,no rhonchii or wheezing abd: no rebound or guarding ,LLq pain , bs present. ext pulses present , no cyanosis . neuro: axo3 , nonfocal. Objective Data Active Medications Acetaminophen (Acetaminophen 325 Mg Tablet) 650 mg PO Q6H PRN PRN Reason: Pain, Mild 1-3,fever,headache Last Admin: 12/18/24 05:47 Dose: 650 mg Documented By: PAYAM Albuterol Sulfate (Albuterol Sulfate 90 Mcg 8 Gm Inhaler) 2 puff INHALE Q6H PRN PRN Reason: wheezing Calcium Carbonate (Calcium Carbonate 750 Mg Tab.Chew) 750 mg PO Q4H PRN PRN Reason: Heartburn Hydromorphone HCl (Hydromorphone Hcl 0.5 Mg/0.5 Ml Syringe) 0.5 mg IVPUSH Q6H PRN; Protocol PRN Reason: Pain, Severe (Pain Scale 7-10) Last Admin: 12/19/24 08:50 Dose: 0.5 mg Documented By: SERVANDO Piperacillin Sod/Tazobactam (Sod 3.375 gm/ Sodium Chloride) 50 mls @ 100 mls/hr IV Q6H [facility] Last Infusion: 12/19/24 06:31 Dose: Infused Documented By: ARACELI Lactated Ringer's (Lr) 1,000 mls @ 100 mls/hr IVCONT .Q10H [facility] Last Admin: 12/19/24 08:34 Dose: Not Given Documented By: SERVANDO Non-Admin Reason: IV Running Levothyroxine Sodium (Levothyroxine Sodium 25 Mcg Tablet) 25 mcg PO DAILY@0600 [facility] Last Admin: 12/19/24 05:53 Dose: 25 mcg Documented By: ARACELI Magnesium Hydroxide (Milk Of Magnesia 30 Ml Oral.Susp) 30 ml PO DAILY PRN PRN Reason: Constipation Melatonin (Melatonin 3 Mg Tablet) 6 mg PO BEDTIME PRN PRN Reason: Insomnia Ondansetron HCl (Ondansetron Hcl 4 Mg/2 Ml Vial) 4 mg IVPUSH Q6H PRN PRN Reason: Nausea and Vomiting Last Admin: 12/19/24 08:51 Dose: 4 mg Documented By: SERVANDO Oxycodone HCl (Oxycodone Hcl Immed Release 5 Mg Tablet) 5 mg PO Q4H PRN PRN Reason: Pain, Moderate(Pain Scale 4-6) Last Admin: 12/18/24 19:37 Dose: 5 mg Documented By: ARACELI Sodium Chloride (0.9 % Sodium Chloride Flush 3 Ml Syringe) 3 ml IVFLUSH QSHIFT [facility] Last Admin: 12/19/24 08:34 Dose: Not Given Documented By: SERVANDO Non-Admin Reason: IV Running Labs 12/18/24 08:10 12/18/24 08:10 Microbiology Microbiology Results: Microbiology 12/17/24 03:44 Blood Culture - Preliminary Blood - Venous No growth after 48 hours. 12/17/24 03:42 Blood Culture - Preliminary Blood - Venous No growth after 48 hours. Assessment and Plan (1) Acute diverticulitis: Status: Acute Plan 29 y/o F with pmhx IBS-D with new diet change and subsequent constipation and then developed abdominal pain and found to have diverticulitis. Acute diverticulitis with sepsis possible contained micro perf on imaging surgery following -- trial of clears continue with IV abx, ivf, iv analgesics f/u cultures and serial abd pexam IBS-D: no diarrhea continue to moniter hypothyriodism continue levothyroxine asthma - mild intermittent stable continue home albuterol. reason for continued hospitalization: slowly improving, diet being advanced judiciously given possible micro perf, serial abd exams Quality Stroke Does the patient have a stroke diagnosis?: No VTE Prior VTE?: No VTE Risk Level:: Medical - moderate - high VTE Device Contraindication: N/A - Device Ordered VTE Drug Contraindication: N/A - Med Ordered
[2024-12-19] MEDS: Lactated Ringers 1,000 ML 100 ML IVCONT (10:56)
[2024-12-19] MEDS: oxyCODONE HCl Immed Release 5 MG TABLET PO ×2 (14:50→22:04)
[2024-12-19 15:33] VITALS: BP 135/77; PULSE 94; RESP 18; TEMP 36.9; O2SAT 99
[2024-12-19 19:19] VITALS: BP 127/74; PULSE 93; RESP 18; TEMP 36.8; O2SAT 98
[2024-12-19] MEDS: 0.9 % Sodium Chloride Flush 3 ML SYRINGE IVFLUSH (20:24)
[2024-12-20] MEDS: Piperacillin Sodium/Tazobactam 3.375 GM in 0.9 % Sodium Chloride 50 ML IV ×4 (01:49→20:36)
--- NOTE | 2024-12-20 02:26 | PC.NURSE ---
Pt seen ambulating around the hallway, still with lower abd pain but tolerating as per pt, pt was able to shower, endorsed soft stool earlier of the day.
[2024-12-20 03:56] VITALS: BP 120/66; PULSE 92; RESP 18; TEMP 36.9; O2SAT 97
[2024-12-20] MEDS: Levothyroxine Sodium 25 MCG TABLET PO (05:21)
[2024-12-20 07:15] VITALS: BP 120/58; PULSE 83; RESP 16; TEMP 36.6; O2SAT 96
[2024-12-20] MEDS: 0.9 % Sodium Chloride Flush 3 ML SYRINGE IVFLUSH ×3 (07:53→20:37)
--- NOTE | 2024-12-20 08:57 | P.PNGS_ITS ---
Subjective Subjective Date of Service: 12/20/24 Interval history: Patient feeling much better with the guarding her abdominal symptoms. Wishes to have her diet advanced. In the meantime, she is up out of bed ambulating. Patient was states that she has had several colonoscopies in the past. Most recent was within the last 2 years she thinks. Her father had colon cancer which prompted the colonoscopy studies. Physical Exam 2 Vital Signs: Vital Signs: Last Vital Signs Temp 97.8 F 12/20/24 07:15 Pulse 83 12/20/24 07:15 Resp 16 12/20/24 07:15 BP 120/58 L 12/20/24 07:15 Pulse Ox 96 12/20/24 07:15 O2 Del Method Room Air 12/20/24 07:15 BMI result Body Mass Index 48.8 GI: Other: Abdomen corpulent. Markedly improved left lower quadrant suprapubic tenderness. Objective Data Active Medications Acetaminophen (Acetaminophen 325 Mg Tablet) 650 mg PO Q6H PRN PRN Reason: Pain, Mild 1-3,fever,headache Last Admin: 12/18/24 05:47 Dose: 650 mg Documented By: PAYAM Albuterol Sulfate (Albuterol Sulfate 90 Mcg 8 Gm Inhaler) 2 puff INHALE Q6H PRN PRN Reason: wheezing Calcium Carbonate (Calcium Carbonate 750 Mg Tab.Chew) 750 mg PO Q4H PRN PRN Reason: Heartburn Hydromorphone HCl (Hydromorphone Hcl 0.5 Mg/0.5 Ml Syringe) 0.5 mg IVPUSH Q6H PRN; Protocol PRN Reason: Pain, Severe (Pain Scale 7-10) Last Admin: 12/19/24 08:50 Dose: 0.5 mg Documented By: SERVANDO Piperacillin Sod/Tazobactam (Sod 3.375 gm/ Sodium Chloride) 50 mls @ 100 mls/hr IV Q6H [facility] Last Infusion: 12/20/24 08:52 Dose: Infused Documented By: JIMENA Levothyroxine Sodium (Levothyroxine Sodium 25 Mcg Tablet) 25 mcg PO DAILY@0600 [facility] Last Admin: 12/20/24 05:21 Dose: 25 mcg Documented By: CASTILJaquelin Magnesium Hydroxide (Milk Of Magnesia 30 Ml Oral.Susp) 30 ml PO DAILY PRN PRN Reason: Constipation Melatonin (Melatonin 3 Mg Tablet) 6 mg PO BEDTIME PRN PRN Reason: Insomnia Ondansetron HCl (Ondansetron Hcl 4 Mg/2 Ml Vial) 4 mg IVPUSH Q6H PRN PRN Reason: Nausea and Vomiting Last Admin: 12/19/24 22:04 Dose: 4 mg Documented By: REANNA Oxycodone HCl (Oxycodone Hcl Immed Release 5 Mg Tablet) 5 mg PO Q4H PRN PRN Reason: Pain, Moderate(Pain Scale 4-6) Last Admin: 12/19/24 22:04 Dose: 5 mg Documented By: REANNA Sodium Chloride (0.9 % Sodium Chloride Flush 3 Ml Syringe) 3 ml IVFSH [facility] Last Admin: 12/20/24 07:53 Dose: 3 ml Documented By: S-RACIA Labs 12/18/24 08:10 12/18/24 08:10 Microbiology Microbiology Results: Microbiology 12/17/24 03:44 Blood Culture - Preliminary Blood - Venous No growth after 48 hours. 12/17/24 03:42 Blood Culture - Preliminary Blood - Venous No growth after 48 hours. Procedures Date of Service Date of Service: 12/20/24 Progress Note: A&P Assessment and plan (1) Acute diverticulitis: Status: Acute Plan To advance diet, continue IV antibiotics, decrease IV, encourage out of bed/ambulate. Time Spent With Patient Time: Total time managing care of this patient today ____ minutes. Quality Stroke Does the patient have a stroke diagnosis?: No VTE Prior VTE?: No VTE Risk Level:: Medical - moderate - high VTE Device Contraindication: N/A - Device Ordered VTE Drug Contraindication: N/A - Med Ordered
--- NOTE | 2024-12-20 09:06 | HO.PM.IMPN ---
Subjective Subjective Date of Service: 12/20/24 Interval History: Doing better, 03/17, tolerating liquid diet no fever or chills Physical Exam Vital Signs: Vital Signs: Last Vital Signs Temp 97.8 F 12/20/24 07:15 Pulse 83 12/20/24 07:15 Resp 16 12/20/24 07:15 BP 120/58 L 12/20/24 07:15 Pulse Ox 96 12/20/24 07:15 O2 Del Method Room Air 12/20/24 07:15 BMI result Body Mass Index 48.8 Const: Other: General: AO X 3, no acute distress Resp: CTA bilateral CVS: S1,S2,RRR GI: +BS, mild LLLq tenderness Skin: No rash Neuro: motor grossly intact Psych: appropriate affect Objective Data Active Medications Acetaminophen (Acetaminophen 325 Mg Tablet) 650 mg PO Q6H PRN PRN Reason: Pain, Mild 1-3,fever,headache Last Admin: 12/18/24 05:47 Dose: 650 mg Documented By: PAYAM Albuterol Sulfate (Albuterol Sulfate 90 Mcg 8 Gm Inhaler) 2 puff INHALE Q6H PRN PRN Reason: wheezing Calcium Carbonate (Calcium Carbonate 750 Mg Tab.Chew) 750 mg PO Q4H PRN PRN Reason: Heartburn Hydromorphone HCl (Hydromorphone Hcl 0.5 Mg/0.5 Ml Syringe) 0.5 mg IVPUSH Q6H PRN; Protocol PRN Reason: Pain, Severe (Pain Scale 7-10) Last Admin: 12/19/24 08:50 Dose: 0.5 mg Documented By: SERVANDO Piperacillin Sod/Tazobactam (Sod 3.375 gm/ Sodium Chloride) 50 mls @ 100 mls/hr IV Q6H [facility] Last Infusion: 12/20/24 08:52 Dose: Infused Documented By: JIMENA Levothyroxine Sodium (Levothyroxine Sodium 25 Mcg Tablet) 25 mcg PO DAILY@0600 [facility] Last Admin: 12/20/24 05:21 Dose: 25 mcg Documented By: CASTILJaquelin Magnesium Hydroxide (Milk Of Magnesia 30 Ml Oral.Susp) 30 ml PO DAILY PRN PRN Reason: Constipation Melatonin (Melatonin 3 Mg Tablet) 6 mg PO BEDTIME PRN PRN Reason: Insomnia Ondansetron HCl (Ondansetron Hcl 4 Mg/2 Ml Vial) 4 mg IVPUSH Q6H PRN PRN Reason: Nausea and Vomiting Last Admin: 12/19/24 22:04 Dose: 4 mg Documented By: REANNA Oxycodone HCl (Oxycodone Hcl Immed Release 5 Mg Tablet) 5 mg PO Q4H PRN PRN Reason: Pain, Moderate(Pain Scale 4-6) Last Admin: 12/19/24 22:04 Dose: 5 mg Documented By: REANNA Sodium Chloride (0.9 % Sodium Chloride Flush 3 Ml Syringe) 3 ml IVFLUSH [facility] Last Admin: 12/20/24 07:53 Dose: 3 ml Documented By: NAIDA-RACIA Labs 12/18/24 08:10 12/18/24 08:10 Microbiology Microbiology Results: Microbiology 12/17/24 03:44 Blood Culture - Preliminary Blood - Venous No growth after 48 hours. 12/17/24 03:42 Blood Culture - Preliminary Blood - Venous No growth after 48 hours. Assessment and Plan (1) Acute diverticulitis: Status: Acute Plan 29 y/o F with pmhx IBS-D, recent diet change leading to constipation and now acute diverticulitis/sepsis Acute diverticulitis with sepsis, clnically sepsis resolved possible contained micro perf on imaging surgery following advance to full liquid diet continue with IV abx, pain meds culltures negative IBS-D: no diarrhea continue to moniter hypOthyriodism continue levothyroxine asthma - mild intermittent, no exacerbation continue home albuterol. need for inpt: acute diverticulitis with micro perf, iv abx and expert eval Quality Stroke Does the patient have a stroke diagnosis?: No VTE Prior VTE?: No VTE Risk Level:: Medical - moderate - high VTE Device Contraindication: N/A - Device Ordered VTE Drug Contraindication: N/A - Med Ordered
[2024-12-20 09:32] LABS: Hematocrit 30.9 % (37.0-47.0); Hemoglobin 10.4 g/dl (12.0-16.0); Mean Corpuscular HGB Conc 33.7 g/dl (31.0-35.0); Mean Corpuscular Hemoglobin 26.1 pg (27.0-33.0); Mean Corpuscular Volume 77.4 fL (80.0-98.0); Mean Platelet Volume 10.9 fL (9.4-12.3); Platelet Count 321 X10*3/uL (160-400); Red Blood Count 3.99 X10*6/uL (4.20-5.50); Red Cell Distribution Width 15.2 % (11.0-16.0)
[2024-12-20 09:44] LABS: Anion Gap 13 (12-20); Blood Urea Nitrogen 4 mg/dL (9-16); Calcium 8.6 mg/dL (8.4-10.2); Carbon Dioxide 22 mmol/L (22-29); Chloride 108 mmol/L (96-108); Creatinine Clr Calc Pharmacy 148.2; Estimated Glomerular Filt Rate > 60; Glucose Random 85 mg/dL (60-115); Potassium 3.8 mmol/L (3.3-5.1); Sodium 139 mmol/L (135-145)
--- NOTE | 2024-12-20 12:52 | MHC.CM.PN ---
PER ROUNDS PT EXPECTED TO DC [facility] HOME
[2024-12-20 15:24] VITALS: BP 118/80; PULSE 88; RESP 16; TEMP 36.8; O2SAT 98
[2024-12-20] MEDS: oxyCODONE HCl Immed Release 5 MG TABLET PO ×2 (17:41→21:42)
[2024-12-20 19:33] VITALS: BP 141/82; PULSE 88; RESP 18; TEMP 36.4; O2SAT 97
[2024-12-20] MEDS: ondansetron HCL 4 MG/2 ML VIAL IVPUSH (21:43)
[2024-12-21] MEDS: Piperacillin Sodium/Tazobactam 3.375 GM in 0.9 % Sodium Chloride 50 ML IV (02:21)
[2024-12-21 03:57] VITALS: BP 100/58; PULSE 73; RESP 18; TEMP 36.2; O2SAT 97
[2024-12-21] MEDS: Levothyroxine Sodium 25 MCG TABLET PO (06:26)
--- NOTE | 2024-12-21 07:16 | P.CDIM_ITS ---
PROVIDER RESPONSE TEXT: To clarify, the appropriate diagnosis supported by the clinical indicators: Obesity Due to excess calories QUERY TEXT: PHYSICIAN'S DOCUMENTATION REQUEST Date of Query: 12/20/2024 12:25 PM EST Patient Name: Gema Angel Admit Date: 12/17/2024 Dear Luis Manrique MD, A review of the medical record indicates additional documentation may be needed. Please review below and update the documentation accordingly. Clinical Indicators: Height: ( ) 5'2 Weight: ( ) 121.1 kg BMI: ( ) 48.8 Other Clinical Notes Supporting Significance of the BMI: on therapeutic diet If possible, please provide an associated diagnosis related to the abnormal BMI, such as: Overweight Obesity Due to excess calories Obesity Drug induced Obesity Due to other cause Specify the other cause Severe or Morbid Obesity With alveolar hypoventilation Severe or Morbid Obesity Without alveolar hypoventilation BMI is not significant Other (explain) Clinically unable to determine (explain) Thank you, Briseyda Bernal RN Use of terms such as suspected, likely, concern for, or probable (associated with a specific diagnosi s that is being evaluated, monitored, or treated as if it exists) are acceptable and can be coded in the inpatient se tting, when documented at the time of discharge. Please use your independent medical judgment in providing your response. THIS QUERY IS PART OF THE PERMANENT MEDICAL RECORD
--- NOTE | 2024-12-21 07:40 | P.DS_ITS ---
DS: Providers Provider Date of Service: 12/21/24 Date of admission: 12/17/24 09:13 Date of discharge: 12/21/24 Primary care physician: Myriam Carballo MD Consults: 12/17/24 09:20 Consult to General Surgery Routine Consulting Provider: [facility] Reason for consultation: Diverticulitis with minimum perforation Has provider been notified: No DS: Diagnosis Discharge Diagnosis (1) Acute diverticulitis: Status: Acute DS: Summary Hospital Course Hospital Course: admission hpi Chief Complaint: acute diverticulitis HPI:29 y/o F with pmhx IBS-D: patien who change to diet eating low-calorie diet (trying for weight loss) about 4 complaining of constipation diffuse abdominal discomfort , rectal pressure after weeks ago : She said she tried milk of magnesium without much response . Patient feels diffusely bloated , has abdominal pain predominantly on the left side, as per the ED physician she also noticed little bleeding with the stool today. no nausea no vomiting no fever no chills or vomiting Patient had WBC count of 20, tachycardia and tachypnea, lactic acid 1.0, blood cultures sent, CT abdomen shows sigmoid diverticulitis with fat stranding and small amount of air. Admission was requested for acute diverticulitis with sepsis: Patient received IV Zosyn, Zofran, morphine in the ED-says her pain seems similar still, has some nausea. hospital course: Patient presented with diffuse abdominal pain and low-grade fever. She has been experiencing constipation since starting a calorie-restricted diet. KUB showed a non-obstructing bowel pattern. A CT of the abdomen and pelvis showed: Acute diverticulitis at the mid-sigmoid colon. There is extensive pericolonic fat stranding at this site. No pericolonic abscess demonstrated. A small focus of gas is identified along the superior aspect of the mid-sigmoid colon adjacent to a diverticulum, which may represent gas within the diverticulum versus minimal extraluminal gas related to a contained perforation. WBC was 20K, and HR was up to 130. She was started on Zosyn for sepsis due to acute diverticulitis. Her condition has improved, sepsis has resolved, WBC is now normal, fever has resolved, and she has minimal pain. She was seen in consultation by surgery, with no acute intervention needed. Her diet has been gradually advanced, and she is currently tolerating a regular diet. She wishes to go home. Jw will be transitioned to oral Augmentin for a total of 7 days. I am advising outpatient GI follow-up and weight loss management. Time Attestation Discharge Coordination Time (in mins): 45 Quality: Safe Use of Opioids Does Pt have an Active Cancer Diagnosis on the Problem List?: No Quality: Stroke Does the patient have a stroke diagnosis?: No Physical Exam Vital Signs: Vital Signs: Last Vital Signs Temp 97.1 F 12/21/24 03:57 Pulse 73 12/21/24 03:57 Resp 18 12/21/24 03:57 BP 100/58 L 12/21/24 03:57 Pulse Ox 97 12/21/24 03:57 O2 Del Method Room Air 12/20/24 19:33 BMI result Body Mass Index 48.8 Const: Other: General: AO X 3, no acute distress Resp: CTA bilateral CVS: S1,S2,RRR GI: +BS, NT, no distention Skin: No rash Neuro: motor grossly intact Psych: appropriate affect DS: Data Data Completed and Pending Labs on day of discharge: Laboratory Results - last 24 hr 12/20/24 09:24 WBC 9.0 RBC 3.99 L Hgb 10.4 L Hct 30.9 L MCV 77.4 L MCH 26.1 L MCHC 33.7 RDW 15.2 Plt Count 321 MPV 10.9 Absolute Nucleated RBC 0.000 Nucleated RBC % (auto) 0.0 Sodium 139 Potassium 3.8 Chloride 108 Carbon Dioxide 22 Anion Gap 13 BUN 4 L Creatinine 0.70 Estim Creat Clear Calc 148.2 Estimated GFR > 60 Random Glucose 85 Calcium 8.6 Preliminary micro results at discharge 12/17/24 03:44 Blood Culture - Preliminary Blood - Venous No growth after 48 hours. 12/17/24 03:42 Blood Culture - Preliminary Blood - Venous No growth after 48 hours. Discharge Plan Discharge Anticipated Discharge Date/Time: 12/21/24 07:43 Patient Disposition: Home, Self-Care Discharge Diagnosis: Acute diverticulitis Referrals: Myriam Carballo MD [Primary Care Provider] - 1 Week Efrain Ellis MD [Physician] - 1 Week Discharge Medications: New polyethylene glycol 3350 [Miralax] 17 gram/dose powder 17 g PO DAILY Qty: 510 0RF senna 8.6 mg capsule 8.6 mg PO BEDTIME PRN (Reason: constipation) Qty: 20 0RF Continued levothyroxine 25 mcg tablet 25 mcg PO DAILY@0600 albuterol sulfate 90 mcg/actuation HFA aerosol inhaler 2 puff INHALATION Q6H PRN (Reason: wheezing) Diet: Advance to usual diet Activity on Discharge: As tolerated Stand Alone Forms: Patient Portal Discharge page Print Language: Bulgarian Care Plan Goals: recovery from acute diverticulitisi Health Concerns: divertiuculitis obesity Plan of Treatment: take Augmentin as directed and follow up with your doctor in a week, ask for a referral to go see a GI doctor Assessment: see above
[2024-12-21 07:41] VITALS: BP 108/62; PULSE 79; RESP 16; TEMP 36.2; O2SAT 98
--- NOTE | 2024-12-21 09:25 | MHC.CM.PN ---
PT TO DC HOME TODAY WITH NO SERVICES VIA PRIVATE TRANSPORT
[2024-12-21] MEDS: 0.9 % Sodium Chloride Flush 3 ML SYRINGE IVFLUSH (09:31)
[2024-12-21] MEDS: Amoxicillin/Potassium Clav 875 MG TABLET PO (09:31)
[2024-12-21] MEDS: Acetaminophen 325 MG TABLET 650 MG PO (09:45)
== END 2024-12-21 11:14 | disposition home or self-care (01) | DRG 720 ==
LOC: HO.ED 07:17 → HO.EDOVER 09:17 → HO.S3 12-18 10:20
PROVIDERS: Family Medicine; Admitting Provider Internal Medicine; Emergency Provider Internal Medicine; PCP Family Medicine; Visit Provider Internal Medicine
DX: A41.9 Sepsis, unspecified organism (principal); K57.20 Diverticulitis of large intestine with perforation and abscess without bleeding; E03.9 Hypothyroidism, unspecified; E66.09 Other obesity due to excess calories; K58.0 Irritable bowel syndrome with diarrhea; J45.20 Mild intermittent asthma, uncomplicated; Z68.42 Body mass index [BMI] 45.0-49.9, adult; Z71.3 Dietary counseling and surveillance; Z20.822 Contact with and (suspected) exposure to COVID-19; Z79.890 Hormone replacement therapy; Z79.899 Other long term (current) drug therapy
CPT/HCPCS: 0241U; 36415; 74018; 74176; 80048; 80053; 81003; 83605; 84702; 85025; 85027; 87040; 99285; J1171; J2270; J2405; J2543; J7120

== ENCOUNTER → 2024-12-17 01:17 | Outpatient (BNV) | payer BC, SELFPAY | PROVIDERS: Emergency Provider Internal Medicine; Visit Provider Radiology Diagnostic Radiology | DX: K57.32 Diverticulitis of large intestine without perforation or abscess without bleeding (principal); K56.41 Fecal impaction | CPT/HCPCS: 74018; 74176 ==

== ENCOUNTER → 2024-12-17 09:13 | Outpatient (BNV) | payer BC, SELFPAY | PROVIDERS: Admitting Provider Internal Medicine; Emergency Provider Internal Medicine; Visit Provider Surgery | DX: K57.92 Diverticulitis of intestine, part unspecified, without perforation or abscess without bleeding (principal) | CPT/HCPCS: 99231 ==

== ENCOUNTER → 2024-12-17 09:13 | Outpatient (BNV) | payer BC, SELFPAY | PROVIDERS: Admitting Provider Internal Medicine; Emergency Provider Internal Medicine; Visit Provider Internal Medicine | DX: K57.92 Diverticulitis of intestine, part unspecified, without perforation or abscess without bleeding (principal) | CPT/HCPCS: 99222; 99231; 99232; 99239 ==

== ENCOUNTER 2025-01-03 09:27 | Outpatient (AMB) | payer BC, SELFPAY ==
--- NOTE | 2025-01-03 09:29 | MHC.OFFVIS ---
Vital Signs 01/03/25 09:34 Height 5 ft 2 in Weight 262 lb BMI 47.9 BP 145/74 H Blood Pressure Location Rt brachial Position Sitting Pulse 94 Intake Visit Reasons: F/U inpatient - Acute diverticulitis Intake Note: Patient referred after ED visit for acute diverticulitis. Patient c/o: constant nausea. Zofran not helping. Reports last colonoscopy March 2024. CT Abd/ pelvis: 12-17-2024 Institutional Research Coordinator Required: No Accompanied by: Self / Same As Patient Allergies Iodinated Contrast Media [Contrast Dye] Allergy (Verified 01/03/25 09:33) Anaphylaxis HPI Comments Details: Patient was status post recent hospitalization for 1st episode of sigmoid diverticulitis. She has complete resolution of her abdominal symptoms. She is tolerating a diet. He is having regular bowel habits. No other GI issues or complaints. Patient was had multiple colonoscopies in the past. Last was in 2002. (This is because her father had colon cancer). Patient was also scheduled to follow up with her medical doctor who will arrange for GI consultation as well. [facility] Social History Household Members: Spouse Housing: Apartment Do you presently have visiting nurse or other home services: No Patient Tobacco Use Status: Never used Tobacco service: No Physical Exam Vital Signs: Last Vital Signs Pulse 94 01/03/25 09:34 BP 145/74 H 01/03/25 09:34 BMI result Body Mass Index 47.9 GI Other: Abdomen corpulent, soft, benign. Assessment & Plan Assessment & Plan (1) Acute diverticulitis: Code(s): K57.92 - Diverticulitis of intestine, part unspecified, without perforation or abscess without bleeding Category: Surgical Plan I am surgical perspective, patient is convalescing well. She has been given dietary recommendations and will otherwise follow-up p.r.n.. I mentioned that should she have recurrent bouts of diverticulitis, consideration will be made for elective resection. All questions answered. Patient will otherwise follow-up p.r.n.. Medications: Discontinued oxycodone Partial Fill upon patient request. Discontinued Reason: Patient Completed Course 5 mg PO Q4H PRN 12 tabs 0RF Pain, Moderate(Pain Scale 4-6) Coding Level of Care Code Est Pt Level 4 (17941) Diagnoses Acute diverticulitis K57.92
[2025-01-03 09:34] VITALS: BP 145/74; PULSE 94; BMI 47.9
--- OUTSIDE RECORDS SUMMARY | 2025-01-03 10:41 | XMS_ITS | Encounter Summary ---
Author Organization [facility] Address [address] [place] [address] Care Team Providers Care Volunteer Services Supervisor Name Role Phone Myriam Kohli MD Primary Care Provider [phone] Reason for Visit * Reason Onset Date Comments PAC Clinical Assessment 12/26/2024 Encounter Details Date Type Department Care Team (Late st Contact Info) Description 12/26/2024 Telephone [facility] Family and Community Medicine [address] [place] [address] Software Sales Representative: Radha Perkins Telephone Intake, Staff PAC Clinical Assessment Social History Tobacco Use Types Packs/Day Years Used Date Smoking Tobacco: Never Smokeless Tobacco: Never Comments:: Alcohol Use Standard Drinks/Week Comments Yes 0 (1 standard drink = 0.6 oz pur e alcohol) social [facility] Utilities Answer Date Recorded In the past 12 months has th e [employer], gas, oil, or water company threatened to [...] PM EDT documented as of this encounter Miscellaneous Notes * Telephone Encounter - Fabby Tejeda - 12/28/2024 1:23 PM EST Schedule pt for telehealth 01/[address] kohli * Telephone Encounter - Fabby Tejeda - 12/28/2024 8:33 AM EST Sent [employer] message * Telephone Encounter - Fabby Tejeda - 12/27/2024 8:06 AM EST Left voicemail for pt to call back * Telephone Encounter - Marcus Bardales - 12/26/2024 4:13 PM EST Pt calling in to schedule a I/P follow up per DT unable to schedule, Please advise Pt can be reached at [phone] documented in this encounter Plan of Treatment Upcoming Encounters Date Type Department Care Team (Late st Contact Info) Description 01/03/2025 11:00 AM EST Telehealth [facility] and [address] [address] Software Sales Representative: Myriam Cox MD [address] [place] [address] 08/10/2025 11:00 AM EDT Telehealth [facility] 5th Floor [address] [place] [address] documented as of this encounter Visit Diagnoses Not on filedocumented in this encounter Care Teams Volunteer Services Supervisor Relationship Specialty Start Date End Date Myriam Kohli MD [address] [place] [phone] PCP - General Family Medicine 01/27/23 documented as of this encounter
--- OUTSIDE RECORDS SUMMARY | 2025-01-03 10:41 | XMS_ITS | Clinical Summary ---
Author Organization [facility] Address [address] [place] [address] Care Team Providers Care Concrete Sculptor Name Role Phone Micheal Nunez Primary Care Provider [phone] Immunizations Name Administration Dates Next Due COVID-19, [...] Date of Phone Billing Address Personal/Family [address] [facility] [address] [place] [address] BCBS FEE FOR SERVICE HMO * Guarantor: [facility] Account Type Relation to Patient Date of Phone Billing Address Occupational [employer] [phone] (Home) ACCOUNTS PAYABLE [address] [place] [address] Care Teams Concrete Sculptor Relationship Specialty Start Date End Date Micheal Nunez [address] [address] PCP - General Internal Medicine 11/13/19
--- OUTSIDE RECORDS SUMMARY | 2025-01-03 10:41 | XMS_ITS | Encounter Summary ---
Author Organization [facility] Address [address] [place] [address] Care Team Providers Care Hyperbaric Technologist Name Role Phone Myriam Carballo MD Primary Care Provider [phone] Encounter Details Date Type Department Care Team (Late st Contact Info) Description 12/18/2024 [employer] Message [facility] [address] [place] [id number] Traffic Analyst: Danielle Hernández Genetic Counseling Appointment- Re-scheduled Social History Tobacco Use Types Packs/Day Years Used Date Smoking Tobacco: Never Smokeless Tobacco: Never Comments:: Alcohol Use Standard Drinks/Week Comments Yes 0 (1 standard drink = 0.6 oz pur e alcohol) social [facility] Utilities Answer Date Recorded In the [...] Contact Info) Description 01/03/2025 11:00 AM EST [facility] Family and Community Medicine [address] [place] [address] Traffic Analyst: Myriam Cox MD [address] [place] [address] 08/10/2025 11:00 AM EDT Telehealth [facility] 5th Floor [address] [place] [address] documented as of this encounter Visit Diagnoses Not on filedocumented in this encounter Care Teams Hyperbaric Technologist Relationship Specialty Start Date End Date Myriam Carballo MD [address] [place] [address] PCP - General Family Medicine 01/27/23 documented as of this encounter
--- OUTSIDE RECORDS SUMMARY | 2025-01-03 10:41 | XMS_ITS | Encounter Summary ---
Author Organization [facility] Address [address] [place] [address] Care Team Providers Care Hot Dip Galvanizer Name Role Phone Myriam Carballo MD Primary Care Provider [phone] Encounter Details Date Type Department Care Team (Late st Contact Info) Description 12/19/2024 [employer] Message [facility] [address] [place] [address] Hairpiece Stylist: Danielle Hernández RE: Genetic Counseling Appointment- Re-scheduled Social History Tobacco Use Types Packs/Day Years Used Date Smoking Tobacco: Never Smokeless Tobacco: Never Comments:: Alcohol Use Standard Drinks/Week Comments Yes 0 (1 standard drink = 0.6 oz pur e alcohol) social [facility] Utilities Answer Date Recorded In the past 12 months has th e electric, gas, oil, or water company [...] Contact Info) Description 01/03/2025 11:00 AM EST [facility] [address] [place] [address] Hairpiece Stylist: Myriam Cox MD [address] [place] [address] 08/10/2025 11:00 AM EDT Telehealth [facility] 5th Floor [address] [place] [address] documented as of this encounter Visit Diagnoses Not on filedocumented in this encounter Care Teams Hot Dip Galvanizer Relationship Specialty Start Date End Date Myriam Carballo MD [address] [place] [address] PCP - General Family Medicine 01/27/23 documented as of this encounter
--- OUTSIDE RECORDS SUMMARY | 2025-01-03 10:41 | XMS_ITS | Encounter Summary ---
Author Organization [facility] Address [address] [place] [address] Care Team Providers Care Supervisor Grounds Name Role Phone Myriam Carballo MD Primary Care Provider [phone] Encounter Details Date Type Department Care Team (Late st Contact Info) Description 12/28/2024 [employer] Message [facility] Family and Community Medicine [address] [place] [address] Financial Rep: Radha Murray, Generic Provider [address] [place], [place] [id number] appointment Social History Tobacco Use Types Packs/Day Years Used Date Smoking Tobacco: Never Smokeless Tobacco: Never Comments:: Alcohol Use Standard Drinks/Week Comments Yes 0 (1 standard drink = 0.6 oz pur e alcohol) social [facility] Utilities Answer Date Recorded In the past 12 months has th e [employer], gas, oil, or water [employer] threatened to shut off services in your [...] Contact Info) Description 01/03/2025 11:00 AM EST [facility] [address] [place] [address] Financial Rep: Myriam Cox MD [address] [place] [address] 08/10/2025 11:00 AM EDT Telehealth [facility] 5th Floor [address] [place] [address] documented as of this encounter Visit Diagnoses Not on filedocumented in this encounter Care Teams Supervisor Grounds Relationship Specialty Start Date End Date Myriam Carballo MD [address] [place] [address] PCP - General Family Medicine 01/27/23 documented as of this encounter
--- OUTSIDE RECORDS SUMMARY | 2025-01-03 10:41 | XMS_ITS | Referral Summary ---
Author Organization [facility] Address [address] [place] [address] Care Team Providers Care Fence Laborer Name Role Phone Myriam Carballo MD Primary Care Provider Encounters Date Type Department Care Team Description 12/28/2024 myChart Message [address] [address] Orthopedics Pediatric Physician: Radha Murray Generic Provider appointment 12/28/[address] [address] Orthopedics Pediatric Physician: Myriam Cox MD Hospital Discharge Follow-up Student 12/28/2024 myChart Message [address] [address] Orthopedics Pediatric Physician: Radha Murray Generic Provider appointment 12/26/[address] [address] Orthopedics Pediatric Physician: Radha Perkins Telephone Intake, Staff PAC Clinical Assessment 12/19/2024 myChart Message [facility] [address] [place] [address] Orthopedics Pediatric Physician: Danielle Hernández RE: Genetic Counseling Appointment- Re-scheduled 12/18/2024 myChart Message [facility] [address] [place] [address] Orthopedics Pediatric Physician: Danielle Hernández Genetic Counseling Appointment- Re-scheduled 12/11/[address] [employer] Message [address] [address] Orthopedics Pediatric Physician: Myriam Cox MD Three quick questions 10/11/[address] [address] Orthopedics Pediatric Physician: Lizeth Schmidt RN 10/11/2024 [employer] Message [address] [address] Orthopedics Pediatric Physician: Myriam Cox MD Norovirus from Last 3 [...] 02/07/2013 Overview (07/30/2017): TST 20MM 01/23/2013 Immunizations Immunization Administration Dates Next Due Diphtheria, Tetanus Toxoids [...] Vaccin e, Quadrivalent 01/11/2017,05/24/2008,01/03/2008,10/26 Influenza, Injectable, Madin Pinon Canine Kidney, Preservative Free, Quadrivalent 09/11/2022,08/02/2017 Influenza, Injectable, Quadr ivalent, Contains Preservative 09/01/2021 Influenza, Injectable, Quadr ivalent, Preservative Free 08/30/2024,09/11/2022,09/01/2021,07/28,08/03/2018,08/05/2016 Influenza, Unspecified 08/26/2023,2021,09/01/2021,09/09 Measles, Mumps, and Rubella Vaccine 04/2017,07/20/2001,08/15/1997,05/29 Meningococcal Polysaccharide (Groups A, C, Y and W-135) Diphtheria Toxoid Conjugate Vaccine (MCV4P) 05/26/2016 Pneumococcal conjugate PCV20,polysaccharide [id number] conjugate, adjuvant, PF (Prevnar 20) 04/15/2022 Poliovirus Vaccine, Inactivated 06/30/20 00,11/21/1997,1996,07/26 Tetanus Toxoid, Reduced Diph theria Toxoid, and Acellular Pertussis Vaccine, Adsorbed 11/17/2016,10/26/2007 Tetanus and Diphtheria Toxoi ds, Adsorbed, Preservative Free (2 Lf of Tetanus Toxoid and 2 Lf of Diphtheria Toxoid) 05/09/2015 Tuberculin Skin Test; Purifi ed Protein Derivative Solution, Intradermal 07/20/2001 Social History Tobacco Use Types Packs/Day Years Used Date Smoking Tobacco: Never Smokeless Tobacco: Never Comments:: Alcohol Use Standard Drinks/Week Comments Yes 0 (1 standard drink = 0.6 oz pur e alcohol) social [facility] Utilities Answer Date Recorded In the [...] Contact Info) Description 01/03/2025 11:00 AM EST [facility] [address] [place] [address] Orthopedics Pediatric Physician: Radha Carballo, Myriam Kam MD [address] [place] [address] 08/10/2025 11:00 AM EDT [facility] 5th Floor [address] [place] [address] Procedures * Due to [place] [employer] law, this organization might not be sharing negative HIV tests. Procedure Name Priority Date/Time Associated Diagnosis Comments HEPATITIS C ANTIBODY W/REFLEX TO HCV RNA, QUANTITATIVE PCR Routine 06/02/2023 11:13 AM EDT Routine screening for STI (sexually transmitted infection) from Last 3 Months or Most Recently Relevant to Health Maintenance Results * Due to [facility] law, this organization might not be sharing negative HIV tests. * Hepatitis C Antibody w/Reflex to HCV RNA, Quantitative PCR (06/02/2023 11:13 AM EDT) Hepatitis C Antibody NON-REACT CRISTINE NON-REACT CRISTINE 06/02/2023 8:[address] [facility] Comment: HCV antibody was non-reactive. There is no laboratory evidence of HCV infection. In most cases, no further action is required. However, if recent HCV exposure is suspected, a test for HCV RNA (test code 74165) is suggested. For additional information please refer to http://education.Shuropody/faq/XXK02n7 (This link is being provided for informational/ educational purposes only.) Blood Structure of peripheral vein / Unknown Venipuncture / Unknown 06/02/2023 11:13 AM EDT 06/02/2023 11:25 AM EDT Brittney WELLS - 06/02/2023 8:55 PM EDT [facility] Received Date:[id number] Myriam Carballo MD LAB BLOOD ORDERABLES Final R esult [facility] [address] [facility] 3rd [address], [place] [address], [place] [phone] Alter-G [facility] [address] [facility] 3rd Floor, [place] [address], from Last 3 Months or Most Recently Relevant to Health Maintenance Insurance [facility] PPO/EPO [facility] PPO/EPO Advance Directives Documents on File Type Date Recorded Patient Educational Administrator Expl anation Health Care Proxy 06/07/2023 8:47 PM 06-02 Care Teams Fence Laborer Relationship Specialty Start Date End Date Myriam Carballo MD [address] [place] [address] PCP - General Family Medicine 01/27/23
--- OUTSIDE RECORDS SUMMARY | 2025-01-03 10:41 | XMS_ITS | Encounter Summary ---
Author Organization [facility] Address [address] [place] [address] Care Team Providers Care Fruit Or Nut Crops Farm Manager Name Role Phone Myriam Carballo MD Primary Care Provider [phone] Reason for Visit * Reason Onset Date Comments Hospital Discharge Follow-up Student 12/28/2024 Encounter Details Date Type Department Care Team (Late st Contact Info) Description 12/28/2024 Telephone [facility] Family [facility] Community Medicine [address] [place] [address] Natural Gas Inspector: Myriam Cox MD [address] [place] [address] Hospital Discharge Follow-up Student Social History Tobacco Use Types Packs/Day Years Used Date Smoking Tobacco: Never Smokeless Tobacco: Never Comments:: Alcohol Use Standard Drinks/Week Comments Yes 0 (1 standard drink = 0.6 oz pur e alcohol) social [facility] Utilities Answer Date Recorded In [...] encounter Miscellaneous Notes * Telephone Encounter - Faby Johnson RN - 01/01/2025 7:40 AM EST Noted * Telephone Encounter - Myriam Carballo MD - 12/29/2024 3:53 PM EST Agree with plan for follow-up visit, will reassess when I see her * Telephone Encounter - Faby Johnson RN - 12/29/2024 11:55 AM EST Yes! I finished my antibiotic yesterday and pain hasn't been horrible so I do have a few oxycodone left. Thank you for checking in! MOHAN Livingston, HAT FORMING MACHINE OPERATOR, RN Noted students email response above * Telephone Encounter - Faby Johnson RN - 12/29/2024 8:16 AM EST I am feeling better! My biggest concern is the continued nausea I have been having especially aftereating. I have a follow up surgical appointment also on the before I see Dr. Carballo. I still have enough zofran to last me to the telehealth appointment but might need a refill after or another option. I do not have any home services. Gema Angel, BS, HAT FORMING MACHINE OPERATOR, RN Gema, I'm so glad that you are starting to feel better. You can speak to Dr. Carballo about extending that Zofran script, that should not be a problem. I just really wanted to make sure you are all set until that appt with your medications/pain management and that in the meantime you don't need anything from us. Please don't hesitate to reach out to us prior to this appt if you should need anything. Thank you, Faby * Telephone Encounter - Faby Johnson RN - 12/29/2024 7:52 AM EST Noted message below. Student was emailed at this time will await responses to questions and update this encounter at that time. * Telephone Encounter - Drea Carlos - 12/28/2024 4:10 PM EST PATIENT IS CALLING BACK ' STATES SHE HAS CLINICAL TOMORROW 6-6 , WEDNESDAY 6-6 AND CLASS 9-4 ON WEDNESDAY. ASKING IF YOU CAN MESSAGE HER. SHE WILL NOT BE ABLE TO MAKE A PHONE CALL. * Telephone Encounter - Fbay Johnson RN - 12/28/2024 1:23 PM EST TRANSITIONAL CARE MANAGEMENT TELEPHONE NOTE STAFF COMMENTS FOR PROVIDER Dec 17- admitted to [facility] for acute diverticulitis. Needs follow- up appt with PCP within 7-14 days. Patient is requesting a telehealth visit. Booked prior with clerical administrator 01/03/25 at [address] Kait stovall but patient is aware that it is the providers decision ultimately if this is appropriate for a telehealth and this may have to be moved to an in- person visit. DISCHARGE INFORMATION Gema was discharged from [facility] on Dec 21 for Acute Diverticulitis. MEDICATION REVIEW The discharge medication list has been reviewed and updated in the medication review section. (Fromwhat I see patient was put on Augmentin, Zofran, and Oxycodone as per JAN)- Will confirm when I speak to patient. Do you have access to all the medications you were discharged with? GENERAL ASSESSMENT How have you been feeling since returning home? What are you biggest concerns right now? How are you managing at home? Is there anything else we can help you with? HOME HEALTH SERVICES Are you receiving visiting nurse services at home?: Are there any additional services you are receiving? WRAP UP Face to face visit was not scheduled due to patients preference for a Telehealth visit. At this time was booked for Telehealth, provider can make determination on whether or not this is something that can be accommodated or not. Future Appointments Date Time Provider Department Center 01/03/2025 11:00 AM Myriam Carballo MD [facility] 08/10/2025 11:00 AM [place] GENETIC COUNSELOR [facility] Patient did not answer this call, message left. Will complete/addend remaining items once she returns my call. FYI Dr. Carballo * Telephone Encounter - Fabby Tejeda - 12/28/2024 12:59 PM EST Pt calling to schedule a hospital follow up was admitted on Dec 17-dec 21 at [facility] [place].For acute diverticulitis, septics, Micro bowel fusion. Wanted to schedule a follow up telehealth. Schedule this patient for 01/03 at 11:[address] Carballo. Pt can be reached at [phone] documented in this encounter Plan of Treatment Upcoming Encounters Date Type Department Care Team (Late st Contact Info) Description 01/03/2025 11:00 AM EST Telehealth [facility] Family and Community [address] [address] Natural Gas Inspector: Myriam Cox MD [address] [place] [address] 08/10/2025 11:00 AM EDT Telehealth [facility] 5th Floor [address] [place] [address] documented as of this encounter Visit Diagnoses Not on filedocumented in this encounter Care Teams Fruit Or Nut Crops Farm Manager Relationship Specialty Start Date End Date Myriam Carballo MD [address] [place] [address] PCP - General Family Medicine 01/27/23 documented as of this encounter
--- OUTSIDE RECORDS SUMMARY | 2025-01-03 10:41 | XMS_ITS | Clinical Summary ---
Author Organization [facility] Address [address] [place] [address] Care Team Providers Care Heel Blacker Name Role Phone Myriam Carballo MD Primary [...] Date Type Department Care Team Description 12/28/2024 [employer] Message [address] [address] Health Care Law Specialist: Radha Murray, Generic Provider appointment 12/28/2024 [address]phone [address] [place] [address] Health Care Law Specialist: Myriam Cox MD Hospital Discharge Follow-up Student 12/28/2024 [employer] [address] [address] Health Care Law Specialist: Deidra Dent Provider appointment 12/26/[address] [address] Health Care Law Specialist: Radha Perkins Telephone Intake, Staff PAC Clinical Assessment 12/19/2024 [employer] [facility] [address] [place] [address] Health Care Law Specialist: Danielle Hernández RE: Genetic Counseling Appointment- Re-scheduled 12/18/2024 [employer] [facility] [address] [place] [address] Health Care Law Specialist: Danielle Hernández Genetic Counseling Appointment- Re-scheduled 12/11/2024 [employer] [address] [address] Health Care Law Specialist: Myriam Cox MD Three quick questions 10/11/[address] [address] Health Care Law Specialist: Lizeth Schmidt, RN 10/11/[address] [employer] Message [address] [address] Health Care Law Specialist: Myriam Cox MD Norovirus from Last 3 Months Immunizations Immunization Administration Dates Next Due Diphtheria, [...] Vaccin e, Quadrivalent 01/11/2017,05/24/2008,01/03/2008,10/26 Influenza, Injectable, [place] Canine Kidney, Preservative Free, Quadrivalent 09/11/2022,08/02/2017 Influenza, Injectable, Quadr ivalent, Contains Preservative 09/01/2021 Influenza, Injectable, Quadr ivalent, Preservative Free 08/30/2024,09/11/2022,09/01/2021,07/28,08/03/2018,08/05/2016 Influenza, Unspecified 08/26/2023,2021,09/01/2021,09/09 Measles, Mumps, and Rubella Vaccine 04/2017,07/20/2001,08/15/1997,05/29 Meningococcal Polysaccharide (Groups A, C, Y and W-135) Diphtheria Toxoid Conjugate Vaccine (MCV4P) 05/26/2016 Pneumococcal conjugate PCV20,polysaccharide IVM470 conjugate, adjuvant, PF (Prevnar 20) 04/15/2022 Poliovirus Vaccine, Inactivated 06/30/20 00,11/21/1997,1996,07/26 Tetanus Toxoid, Reduced Diph theria Toxoid, and Acellular Pertussis Vaccine, Adsorbed 11/17/2016,10/26/2007 Tetanus and Diphtheria Toxoi ds, Adsorbed, Preservative Free (2 Lf of Tetanus Toxoid and 2 Lf of Diphtheria Toxoid) 05/09/2015 Tuberculin Skin Test; Purifi ed Protein Derivative Solution, Intradermal 07/20/2001 Family [...] = 0.6 oz pur e alcohol) social [facility] Utilities Answer Date Recorded In the past [...] Info) Description 01/03/2025 11:00 AM EST Telehealth [facility] Medicine [address] [place] [address] Health Care Law Specialist: Myriam Cox MD [address] [place] [address] 08/10/2025 11:00 AM EDT Telehealth [facility] 5th Floor [address] [place] [address] Health Maintenance Due Date Last Done Comments Varicella Vaccines (1 of 2 - 13+ 2-dose series) 02/08/2017 COVID-19 Vaccine (2023-2 5 season) 2024 11/19/2021, 12/13/2020, 11/14/2020 Alcohol/Substance Use Screening 11/08/2024 Depression Evaluation 11/08/2024 Social Drivers of Health Mickie ual Screening 11/08/2024 Pap Smear 11/19/2025 11/19/2022, 02/10/2017 DTaP,Tdap,and Td Vaccines (9 - Td or Tdap) 11/17/2026 11/17/2016, 05/09/2015, 10/26/2007, Additional history exists RSV Vaccine (60+ years old a nd patients) (1 - 1-dose 75+ series) [address] [facility] Student Health-MMR Vaccines Completed 01/11/2017, 07/20/2001, 08/15/1997, Additional history exists Pneumococcal Vaccine: Pediat karey (0-5 Years) and At-Risk Patients (6-50 Years) Completed 04/15/2022 HIV Screening Completed 06/02/2023, 04/15/2022 Hepatitis C Screening Completed 06/02/2023 Hepatitis B Vaccines Completed 08/25/2023, 05/08/2022, 05/08/2022, Additional history exists Influenza Vaccine Completed 08/30/2024, , 09/11/2022, Additional history exists Procedures * Due to [place] [employer] law, this organization might not be sharing negative HIV tests. Procedure Name Priority Date/Time Associated Diagnosis Comments HEPATITIS C ANTIBODY W/REFLEX TO HCV RNA, QUANTITATIVE PCR Routine 06/02/2023 11:13 AM EDT Routine screening for STI (sexually transmitted infection) from Last 3 Months or Most Recently Relevant to Health Maintenance Results * Due to [place] [employer] law, this organization might not be sharing negative HIV tests. * Hepatitis C Antibody w/Reflex to HCV RNA, Quantitative PCR (06/02/2023 11:13 AM EDT) Hepatitis C Antibody NON-REACT CRISTINE NON-REACT CRISTINE 06/02/2023 8:55 PM EDT [employer] [facility] Comment: HCV antibody was non-reactive. There is no laboratory evidence of HCV infection. In most cases, no further action is required. However, if recent HCV exposure is suspected, a test for HCV RNA (test code 89101) is suggested. For additional information please refer to http://education.Metaps/faq/WFQ79r7 (This link is being provided for informational/ educational purposes only.) Blood Structure of peripheral vein / Unknown Venipuncture / Unknown 06/02/2023 11:13 AM EDT 06/02/2023 11:25 AM EDT [facility]ative [facility] - 06/02/2023 8:55 PM EDT [facility] Received Date:[id number] Myriam Carballo MD LAB BLOOD ORDERABLES Final R esult [facility] [address], [place] [address], [place] [phone] Tailored [facility] [address], [place] [address], [place] [phone] from Last 3 Months or Most Recently Relevant to Health Maintenance Insurance [facility] PPO/EPO [facility] PPO/EPO Advance Directives Documents on File Type Date Recorded Patient Passenger Service Manager Expl anation Health Care Proxy 06/07/2023 8:47 PM 06-02 Care Teams Heel Blacker Relationship Specialty Start Date End Date Myriam Carballo MD [address] [place] [address] PCP - General Family Medicine 01/27/23
--- OUTSIDE RECORDS SUMMARY | 2025-01-03 10:41 | XMS_ITS | Encounter Summary ---
Author Organization [facility] Address [address] [place] [address] Care Team Providers Care Belt Measurer Name Role Phone Myriam Carballo MD Primary Care Provider [phone] Encounter Details Date Type Department Care Team (Late st Contact Info) Description 12/28/2024 [employer] Message [facility] Family and Community Medicine [address] [place] [address] Screw Supervisor: Radha Murray, Generic Provider [address] [place], [place] [phone] appointment Social History Tobacco Use Types Packs/Day Years Used Date Smoking Tobacco: Never Smokeless Tobacco: Never Comments:: Alcohol Use Standard Drinks/Week Comments Yes 0 (1 standard drink = 0.6 oz pur e alcohol) social [facility] Utilities Answer Date Recorded In the past 12 months has th e [employer], gas, oil, or water [employer] threatened to shut off services in your [...] Contact Info) Description 01/03/2025 11:00 AM [facility] [address] [place] [address] Screw Supervisor: Myriam Cox MD [address] [place] [address] 08/10/2025 11:00 AM EDT Telehealth [facility] 5th Floor [address] [place] [address] documented as of this encounter Visit Diagnoses Not on filedocumented in this encounter Care Teams Belt Measurer Relationship Specialty Start Date End Date Myriam Carballo MD [address] [place] [address] PCP - General Family Medicine 01/27/23 documented as of this encounter
--- OUTSIDE RECORDS SUMMARY | 2025-01-03 10:41 | XMS_ITS | Encounter Summary ---
Author Organization [facility] Address [address] [place] [address] Care Team Providers Care Character Impersonator Name Role Phone Myriam Carballo MD Primary Care Provider [phone] Encounter Details Date Type Department Care Team (Late Contact Info) Description 06/09/2023 [employer] Message [facility] [address] [place] [address] No Paper Just Vapor, Generic Provider [address] [place], [place] [phone] nutrition appointment Social History Tobacco Use Types Packs/Day [...] Encounters Date Type Department Care Team (Late Contact Info) Description 01/03/2025 11:00 AM [facility] Telehealth [facility] Family and Community Medicine [address] [place] [address] Retail Route Supervisor: Myriam Cox MD [address] [place] [address] 08/10/2025 11:00 AM EDT Telehealth [facility] 5th Floor [address] [place] [address] documented as of this encounter Visit Diagnoses Not on filedocumented in this encounter Care Teams Character Impersonator Relationship Specialty Start Date End Date Myriam Carballo MD [address] [place] [address] PCP - General Family Medicine 01/27/23 documented as of this encounter
--- OUTSIDE RECORDS SUMMARY | 2025-01-03 10:42 | XMS_ITS | Encounter Summary ---
Author Organization [facility] Address [address] [place] [address] Care Team Providers Care Timber Bucker Name Role Phone Myriam Carballo MD Primary Care Provider [phone] Encounter Details Date Type Department Care Team (Late st Contact Info) Description 07/19/2024 [employer] Message [employer] Financial Clearance Department [address] [place] [address] Mychart, Generic Provider [address] [phone] Medication Social History Tobacco Use Types Packs/Day Years Used Date Smoking Tobacco: Never Smokeless Tobacco: Never Comments:: Alcohol Use Standard Drinks/Week Comments Yes 0 (1 standard drink = 0.6 oz pur e alcohol) social [facility] Utilities Answer Date Recorded In [...] Contact Info) Description 01/03/2025 11:00 AM EST [facility] Family and Community Medicine [address] [place] [address] Thermal Molder: Myriam Cox MD [address] [place] [address] 08/10/2025 11:00 AM EDT Telehealth [facility] 5th Floor [address] [place] [address] documented as of this encounter Visit Diagnoses Not on filedocumented in this encounter Care Teams Timber Bucker Relationship Specialty Start Date End Date Myriam Carballo MD [address] [place] [address] PCP - General Family Medicine 01/27/23 documented as of this encounter
--- OUTSIDE RECORDS SUMMARY | 2025-01-03 10:42 | XMS_ITS | Encounter Summary ---
Author Organization [facility] Address [address] [place] [address] Care Team Providers Care Floating Labor Gang Supervisor Name Role Phone Myriam Carballo MD Primary Care Provider [phone] Encounter Details Date Type Department Care Team (Late st Contact Info) Description 12/11/2024 myChart Message [facility] Family and Community Medicine [address] [place] [address] Reclaimer: Myriam Cox MD [address] [place] [address] Three quick questions Social History Tobacco Use Types Packs/Day Years Used Date Smoking Tobacco: Never Smokeless Tobacco: Never Comments:: Alcohol Use Standard Drinks/Week Comments Yes 0 (1 standard drink = 0.6 oz pur e alcohol) social [facility] Utilities Answer Date Recorded In the past 12 months has th e [employer], gas, oil, or water [employer] threatened to shut off services in your [...] Contact Info) Description 01/03/2025 11:00 AM EST [facility] [address] [place] [address] Reclaimer: Myriam Cox MD [address] [place] [address] 08/10/2025 11:00 AM EDT Telehealth [facility] 5th Floor [address] [place] [address] documented as of this encounter Visit Diagnoses Not on filedocumented in this encounter Care Teams Floating Labor Gang Supervisor Relationship Specialty Start Date End Date Myriam Carballo MD [address] [place] [address] PCP - General Family Medicine 01/27/23 documented as of this encounter
--- OUTSIDE RECORDS SUMMARY | 2025-01-03 10:44 | XMS_ITS | Encounter Summary ---
Author Organization [facility] Address [address] [place] [address] Care Team Providers Care Rental Management Trainee Name Role Phone Myriam Carballo MD Primary Care Provider [phone] Encounter Details Date Type Department Care Team (Late Contact Info) Description 06/03/2022 External Result Entry [address] [address] Software Sales: Lizeth Schmidt, RN [place], [place] Social History Tobacco Use Types Packs/Day [...] (Late Contact Info) Description 01/03/2025 11:00 AM [facility] Telehealth [address] [address] Software Sales: Myriam Cox MD [address] [place] [phone] 08/10/2025 11:00 AM EDT Telehealth [facility] 5th Floor [address] [place] [address] documented as of this encounter Procedures * Due to [place] [employer] law, this organization might not be sharing [...] in this encounter Results * Due to [place] state law, this organization might not be sharing negative HIV tests. * Hep B Core Total Antibody, Outside Lab (05/28/2022) Hep B Core Total AB neg Blood 05/28/2022 us Unknown Provider LAB BLOOD ORDERABLES Final R esult * Hepatitis B Surface Antigen w/Confirmation, Outside Lab (05/28/2022) Hepatitis B Surface Antigen neg Blood Structure of peripheral vein / Unknown 05/28/2022 us Unknown Provider MD LAB BLOOD ORDERABLES Final R esult * Varicella Zoster Antibody, IGG, Outside Lab (04/15/2022) VZV AB, IgG pos Blood Structure of peripheral vein / Unknown 04/15/2022 us Unknown Provider MD LAB BLOOD ORDERABLES Final R esult * Hep B Surface Antibody, Outside Lab (04/15/2022) Hep B Surface Antibody neg Blood 04/15/2022 us Unknown Provider MD LAB BLOOD ORDERABLES Final R esult * Rubella Antibody, IgG, Outside Lab (04/15/2022) Rubella Antibody, IgG pos Blood Structure of peripheral vein / Unknown 04/15/2022 us Unknown Provider MD LAB BLOOD ORDERABLES Final R esult * Mumps Antibody IgG, Outside Lab (04/15/2022) Mumps Antibody IgG pos Blood 04/15/2022 us Unknown Provider MD LAB BLOOD ORDERABLES Final R esult * Measles Antibody (IGG), Outside Lab (04/15/2022) Measles Antibody (IgG) pos Blood 04/15/2022 us Unknown Provider MD LAB BLOOD ORDERABLES Final R esult * [...] PPD, Outside Result Positive us Unknown Provider AMB EXTERNAL RESULT PROCEDUR ES Final Result documented in this encounter Visit Diagnoses Not on filedocumented in this encounter Care Teams Rental Management Trainee Relationship Specialty Start Date End Date Myriam Carballo MD [address] [place] [address] PCP - General Family Medicine 01/27/23 documented as of this encounter
== END 2025-01-03 09:37 | disposition home or self-care (01) ==
PROVIDERS: PCP Family Medicine; Visit Provider Surgery
DX: K57.92 Diverticulitis of intestine, part unspecified, without perforation or abscess without bleeding (principal)
CPT/HCPCS: 99214

== ENCOUNTER → 2025-01-03 09:27 | Outpatient (BNVA) | payer BC, SELFPAY | PROVIDERS: PCP Family Medicine; Visit Provider Surgery ==